=== PATIENT | female | born 1930 | race Caucasian/White ===

== ENCOUNTER 2018-03-11 09:45 | Emergency (ER) | payer MEDICARE, BC ==
[2018-03-11 09:53] VITALS: PULSE 67; TEMP 97.8
[2018-03-11] MEDS ORDERED: SODIUM CHLORIDE 0.9% 1,000 ML IV STA (10:24)
--- NOTE | 2018-03-11 10:46 | ED ---
Fall HPI - General Chief Complaint: Fall Stated Complaint: Fall Time Seen by Provider: 03/11/18 09:49 Source: patient, EMS Mode of arrival: EMS - History of Present Illness Initial Comments: This is an 88-year-old female the ER for evaluation status post fall. Patient does have a complaint of headache head injury she did hit her head. No loss of consciousness. Patient unsure of events surrounding fall she believes falls mechanical trip and fall. Patient denies any other body pain or injury, she was inhibitory at the scene MD Complaint: fall -: minutes(s) Fall From: standing When Fall Occurred: unsure Fall Witnessed: no Place Fall Occurred: home Loss of Consciousness: none Prolonged Down Time?: no Location: head Severity: mild Severity scale (1-10): 1 Context: tripped/slipped Associated Symptoms: denies - Related Data Home Medications Medication Instructions Recorded Confirmed Aspirin 81 mg PO DAILY 04/19/14 03/11/18 ALPRAZolam [Xanax] 0.25 mg PO BID 03/11/18 03/11/18 Acetaminophen Tab [Tylenol] 1,000 mg PO TID 03/11/18 03/11/18 Allopurinol [Zyloprim] 100 mg PO DAILY 03/11/18 03/11/18 Atenolol [Tenormin] 50 mg PO DAILY 03/11/18 03/11/18 Carbidopa-Levodopa 25-100 mg 1 tab PO BID 03/11/18 03/11/18 [Sinemet 25-100 mg] Cholecalciferol [Vitamin D3] 1,000 mg PO DAILY 03/11/18 03/11/18 Citalopram Hydrobromide 10 mg PO DAILY 03/11/18 03/11/18 [Citalopram HBr] Cyanocobalamin [Vitamin B-12] 500 mcg PO DAILY 03/11/18 03/11/18 Diclofenac Sodium [Voltaren Gel] 4 gram TOPICAL QID 03/11/18 03/11/18 Epoetin Lev [Procrit] 20,000 unit SQ Q28D 03/11/18 03/11/18 Flaxseed Oil 1,000 mg PO DAILY 03/11/18 03/11/18 Furosemide [Lasix] 40 mg PO BID 03/11/18 03/11/18 Glimepiride [Amaryl] 2 mg PO DAILY 03/11/18 03/11/18 Hydrocortisone Cream 1 applic TOPICAL DAILY 03/11/18 03/11/18 [Hydrocortisone 1% Cream] Ipratropium-Albuterol Nebulize 3 ml INHALATION RT-QID 03/11/18 03/11/18 [Duoneb 0.5 mg-3 mg/3 ml Soln] Loperamide [Imodium] 2 mg PO QID 03/11/18 03/11/18 Losartan Potassium 100 mg PO DAILY 03/11/18 03/11/18 Methenamine/Sodium Salicylate 2 cap PO DAILY 03/11/18 03/11/18 [Cystex Plus Tablet] Montelukast [Singulair] 10 mg PO DAILY 03/11/18 03/11/18 Multivitamins, Thera [Multivitamin 1 tab PO DAILY 03/11/18 03/11/18 (formulary)] Nystatin 100,000 Unit/gm Powd 1 applic TOPICAL DAILY 03/11/18 03/11/18 [Mycostatin Powder] Omeprazole 20 mg PO DAILY 03/11/18 03/11/18 Sennosides/Docusate Sodium 1 tab PO BID 03/11/18 03/11/18 [Senna-S Laxative Tablet] Simvastatin [Zocor] 10 mg PO HS 03/11/18 03/11/18 Previous Rx's Medication Instructions Recorded Nitrofurantoin Monohyd/M-Cryst 100 mg PO Q12HR #10 cap 03/11/18 [Macrobid] Allergies Allergy/AdvReac Type Severity Reaction Status Date / Time Penicillins Allergy Severe Rash/Hives Verified 03/11/18 10:35 sulfacetamide sodium Allergy Severe Rash/Hives Verified 03/11/18 10:35 [From Sulfamide] ciprofloxacin Allergy Intermediate Rash/Hives Verified 03/11/18 10:35 bacitracin Allergy Mild Rash/Hives Verified 03/11/18 10:35 [From Neosporin ([id number])] bacitracin zinc Allergy Mild Rash/Hives Verified 03/11/18 10:35 [From Neosporin ([id number])] neomycin sulfate Allergy Mild Rash/Hives Verified 03/11/18 10:35 [From Neosporin ([id number])] polymyxin B Allergy Mild Rash/Hives Verified 03/11/18 10:35 [From Neosporin ([id number])] ibuprofen AdvReac Intermediate Unknown Verified 03/11/18 10:35 adhesive AdvReac Mild Rash/Hives Verified 03/11/18 10:35 morphine AdvReac Mild Nausea & Verified 03/11/18 10:35 Vomiting Review of Systems ROS Statement: Those systems with pertinent positive or pertinent negative responses have been documented in the HPI. ROS Other: All systems not noted in ROS Statement are negative. Past Medical History Past Medical History: Coronary Artery Disease (CAD), Chest Pain / Angina, Diabetes Mellitus, Hyperlipidemia, Hypertension, Renal Disease, Rheumatoid Arthritis (RA), Thyroid Disorder History of Any Multi-Drug Resistant Organisms: None Reported Past Surgical History: Hysterectomy, Joint Replacement Additional Past Surgical History / Comment(s): carpel tunnel Past Psychological History: Anxiety, Depression Smoking Status: Former smoker Past Alcohol Use History: None Reported Past Drug Use History: None Reported - Past Family History Father Family Medical History: CVA/TIA Mother Family Medical History: Cancer General Exam Limitations: no limitations General appearance: alert, in no apparent distress Head exam: Present: atraumatic, normocephalic, normal inspection Eye exam: Present: normal appearance, PERRL, EOMI. Absent: scleral icterus, conjunctival injection, periorbital swelling ENT exam: Present: normal exam, mucous membranes moist Neck exam: Present: normal inspection. Absent: tenderness, meningismus, lymphadenopathy Respiratory exam: Present: normal lung sounds bilaterally. Absent: respiratory distress, wheezes, rales, rhonchi, stridor Cardiovascular Exam: Present: regular rate, normal rhythm, normal heart sounds. Absent: systolic murmur, diastolic murmur, rubs, gallop, clicks GI/Abdominal exam: Present: soft, normal bowel sounds. Absent: distended, tenderness, guarding, rebound, rigid Extremities exam: Present: normal inspection, full ROM, normal capillary refill. Absent: tenderness, pedal edema, joint swelling, calf tenderness Back exam: Present: normal inspection Neurological exam: Present: alert, oriented X3, CN II-XII intact Psychiatric exam: Present: normal affect, normal mood Skin exam: Present: warm, dry, intact, normal color. Absent: rash Course Vital Signs 03/11/18 03/11/18 09:46 14:02 Temperature 97.8 F Pulse Rate 67 67 Respiratory 20 18 Rate Blood Pressure 137/57 150/55 O2 Sat by Pulse 96 97 Oximetry - Reevaluation(s) Reevaluation #1: Patient's family is at bedside states patient is at baseline, patient has no complaints currently Medical Decision Making - Medical Decision Making 88 female DEL mechanical trip and fall, CT negative labwork normal patient does have mild UTI. Patient is able to ambulate and can be discharged home - Lab Data Result diagrams: 03/11/18 11:05 03/11/18 11:05 Lab Results 03/11/18 03/11/18 03/11/18 Range/Units 11: 11: 11:05 WBC 14.2 H (3.8-10.6) k/uL RBC 2.90 L (3.80-5.40) m/uL Hgb 9.2 L (11.4-16.0) gm/dL Hct 29.1 L (34.0-46.0) % MCV 100.6 H (80.0-100.0) fL MCH 31.9 (25.0-35.0) pg MCHC 31.7 (31.0-37.0) g/dL RDW 14.6 (11.5-15.5) % Plt Count 552 H (150-450) k/uL Neutrophils % 79 % Lymphocytes % 11 % Monocytes % 4 % Eosinophils % 5 % Basophils % 0 % Neutrophils # 11.1 H (1.3-7.7) k/uL Lymphocytes # 1.5 (1.0-4.8) k/uL Monocytes # 0.6 (0-1.0) k/uL Eosinophils # 0.7 (0-0.7) k/uL Basophils # 0.1 (0-0.2) k/uL Macrocytosis Slight PT (9.0-12.0) sec INR (<1.2) APTT (22.0-30.0) sec Sodium 128 L (137-145) mmol/L Potassium 4.8 (3.5-5.1) mmol/L Chloride 94 L (98-107) mmol/L Carbon Dioxide 26 (22-30) mmol/L Anion Gap 8 mmol/L BUN 23 H (7-17) mg/dL Creatinine 0.93 (0.52-1.04) mg/dL Est GFR (CKD-EPI)AfAm 64 (>60 ml/min/1.73 sqM) Est GFR (CKD-EPI)NonAf 56 (>60 ml/min/1.73 sqM) Glucose 99 (74-99) mg/dL Calcium 9.4 (8.4-10.2) mg/dL Phosphorus 4.0 (2.5-4.5) mg/dL Magnesium 1.8 (1.6-2.3) mg/dL Total Bilirubin 0.3 (0.2-1.3) mg/dL AST 12 L (14-36) U/L ALT 8 L (9-52) U/L Alkaline Phosphatase 108 (38-126) U/L Total Creatine Kinase 37 (30-135) U/L CK-MB (CK-2) 0.7 (0.0-2.4) ng/mL CK-MB (CK-2) Rel Index 1.9 Troponin I <0.012 (0.000-0.034) ng/mL Total Protein 5.9 L (6.3-8.2) g/dL Albumin 3.2 L (3.5-5.0) g/dL Urine Color Urine Appearance (Clear) Urine pH (5.0-8.0) Ur Specific [place] (1.001-1.035) Urine Protein (Negative) Urine Glucose (UA) (Negative) Urine Ketones (Negative) Urine Blood (Negative) Urine Nitrite (Negative) Urine Bilirubin (Negative) Urine Urobilinogen (<2.0) mg/dL Ur Leukocyte Esterase (Negative) Urine WBC (0-5) /hpf Ur Squamous Epith Cells (0-4) /hpf Amorphous Sediment (None) /hpf Urine Bacteria (None) /hpf Urine Mucus (None) /hpf 03/11/18 03/11/18 Range/Units 11:05 11:05 WBC (3.8-10.6) k/uL RBC (3.80-5.40) m/uL Hgb (11.4-16.0) gm/dL Hct (34.0-46.0) % MCV (80.0-100.0) fL MCH (25.0-35.0) pg MCHC (31.0-37.0) g/dL RDW (11.5-15.5) % Plt Count (150-450) k/uL Neutrophils % % Lymphocytes % % Monocytes % % Eosinophils % % Basophils % % Neutrophils # (1.3-7.7) k/uL Lymphocytes # (1.0-4.8) k/uL Monocytes # (0-1.0) k/uL Eosinophils # (0-0.7) k/uL Basophils # (0-0.2) k/uL Macrocytosis PT 10.3 (9.0-12.0) sec INR 1.0 (<1.2) APTT 25.6 (22.0-30.0) sec Sodium (137-145) mmol/L Potassium (3.5-5.1) mmol/L Chloride (98-107) mmol/L Carbon Dioxide (22-30) mmol/L Anion Gap mmol/L BUN (7-17) mg/dL Creatinine (0.52-1.04) mg/dL Est GFR (CKD-EPI)AfAm (>60 ml/min/1.73 sqM) Est GFR (CKD-EPI)NonAf (>60 ml/min/1.73 sqM) Glucose (74-99) mg/dL Calcium (8.4-10.2) mg/dL Phosphorus (2.5-4.5) mg/dL Magnesium (1.6-2.3) mg/dL Total Bilirubin (0.2-1.3) mg/dL AST (14-36) U/L ALT (9-52) U/L Alkaline Phosphatase (38-126) U/L Total Creatine Kinase (30-135) U/L CK-MB (CK-2) (0.0-2.4) ng/mL CK-MB (CK-2) Rel Index Troponin I (0.000-0.034) ng/mL Total Protein (6.3-8.2) g/dL Albumin (3.5-5.0) g/dL Urine Color Light Yellow Urine Appearance Cloudy H (Clear) Urine pH 6.5 (5.0-8.0) Ur Specific [place] 1.005 (1.001-1.035) Urine Protein Negative (Negative) Urine Glucose (UA) Negative (Negative) Urine Ketones Negative (Negative) Urine Blood Negative (Negative) Urine Nitrite Positive H (Negative) Urine Bilirubin Negative (Negative) Urine Urobilinogen <2.0 (<2.0) mg/dL Ur Leukocyte Esterase Moderate H (Negative) Urine WBC 9 H (0-5) /hpf Ur Squamous Epith Cells 1 (0-4) /hpf Amorphous Sediment Rare H (None) /hpf Urine Bacteria Many H (None) /hpf Urine Mucus Rare H (None) /hpf - EKG Data -: EKG Interpreted by Me (EKG shows sinus rhythm rate of 65, KS 186, QRS 74, QTc 438) - Radiology Data Radiology results: report reviewed (CT brain C-spine negative for acute disease) , image reviewed Disposition Clinical Impression: Fall, Scalp hematoma Disposition: HOME SELF-CARE Condition: Good Instructions: Fall Prevention for Older Adults (ED), Contusion in Adults (ED), Hematoma (ED) Prescriptions: Nitrofurantoin Monohyd/M-Cryst [Macrobid] 100 mg PO Q12HR #10 cap Is patient prescribed a controlled substance at d/c from ED?: No Referrals: Henri Bowman MD [Primary Care Provider] - 1-2 days
[2018-03-11 11:50] LABS: Basophils # (A) 0.1 k/uL (0-0.2); Basophils % (A) 0 %; Eosinophils # (A) 0.7 k/uL (0-0.7); Eosinophils % (A) 5 %; HCT 29.1 % (34.0-46.0); HGB 9.2 gm/dL (11.4-16.0); Lymphocytes # (A) 1.5 k/uL (1.0-4.8); Lymphocytes % (A) 11 %; MCH 31.9 pg (25.0-35.0); MCHC 31.7 g/dL (31.0-37.0); MCV 100.6 fL (80.0-100.0); Macrocytosis Slight; Mean Platelet Volume 6.8; Monocytes # (A) 0.6 k/uL (0-1.0); Monocytes % (A) 4 %; Neutrophils # (A) 11.1 k/uL (1.3-7.7); Neutrophils % (A) 79 %; Platelet Count 552 k/uL (150-450); RDW 14.6 % (11.5-15.5); WBC 14.2 k/uL (3.8-10.6)
[2018-03-11 11:58] LABS: Partial Thromboplastin Time 25.6 sec (22.0-30.0); Prothrombin Time 10.3 sec (9.0-12.0)
[2018-03-11 11:59] LABS: Amorphous Sediment,Urine Rare /hpf; Appearance,Urine Cloudy (Clear); Bacteria,Urine Many /hpf; Bilirubin,Urine Negative (Negative); Blood,Urine Negative (Negative); Color,Urine Light Yellow; Glucose,Urine (UA) Negative (Negative); Ketones,Urine Negative (Negative); Leukocyte Esterase,Urine Moderate (Negative); Mucus,Urine Rare /hpf; Nitrite,Urine Positive (Negative); PH, Urine 6.5 (5.0-8.0); Protein,Urine Negative (Negative); Specific Gravity,Urine 1.005 (1.001-1.035); Squamous Epithelial Cell,Urine 1 /hpf (0-4); Urobilinogen,Urine <2.0 mg/dL (<2.0); WBC,Urine 9 /hpf (0-5)
[2018-03-11 12:00] LABS: Albumin 3.2 g/dL (3.5-5.0); Calcium 9.4 mg/dL (8.4-10.2); Magnesium 1.8 mg/dL (1.6-2.3); Potassium 4.8 mmol/L (3.5-5.1); Total Bilirubin 0.3 mg/dL (0.2-1.3); Total Protein 5.9 g/dL (6.3-8.2)
--- NOTE | 2018-03-11 12:11 | CT ---
EXAMINATION TYPE: CT brain cspine wo con DATE OF EXAM: 03/11/2018 COMPARISON: [facility] chest dated 05/22/2015. HISTORY: fall, subsequent head and neck pain CT DLP: 905 mGycm. Automated Exposure Control for Dose Reduction was Utilized. TECHNIQUE: CT scan of the head and cervical spine are performed without contrast. FINDINGS: There is no acute intracranial hemorrhage, mass effect, or midline shift identified. The ventricles and sulci are symmetrically prominent compatible with age-related volume loss. The globe s are intact and the visualized sinuses are clear. There is similar high density near the foramen of Ware in comparison to the prior exam that may relate to calcified choroid plexus or a small complic ated colloid cyst. There is an 8 mm right frontal scalp hematoma. No underlying calvarial fracture. Cervical spine is visualized in its entirety from C1 through upper thoracic levels and demonstrates s atisfactory alignment without evidence of acute fracture or dislocation. Prevertebral soft tissue ap pears within normal limits. The C1-C2 articulation is unremarkable. There is a stable sclerotic les ion of the T2 vertebral body in comparison to the CT [facility] chest dated 05/22/2015. Sclerotic focus is also seen within the left lateral aspect of the anterior arch of C1. Multilevel degenerative lara ges of the cervical spine are seen with small posterior disc osteophyte complexes at C3-C4, C4-C5, C5 -C6 and C6-C7. Biapical pleural parenchymal scarring is noted at the lung apices. Atherosclerosis is incidentally no harry of the carotids. IMPRESSION: 1. There is no acute fracture or dislocation evident in the cervical spine. 2. No acute intracranial hemorrhage, mass effect, or midline shift is seen. 3. Age-related cerebral volume loss and possible small stable colloid cyst versus calcified choroid p yandy near the foramen of Ware. 4. 8 mm right frontal scalp hematoma. 5. Nonspecific sclerotic foci within the cervical and upper thoracic spine. Thoracic spine lesion is stable dating back to 2015.
[2018-03-11 12:13] LABS: Creatine Kinase 37 U/L (30-135)
[2018-03-11] MEDS ORDERED: cefTRIAXone 2,000 MG in SODIUM CHLORIDE 0.9% 100 ML IVPB STA (12:20)
[2018-03-11 12:24] LABS: Creatine Kinase MB 0.7 ng/mL (0.0-2.4); Troponin I <0.012 ng/mL (0.000-0.034)
[2018-03-11 14:03] VITALS: BP 150/55; RESP 18
[2018-03-11] MEDS ORDERED: ACETAMINOPHEN TAB 500 MG TAB PO STA (14:37)
== END 2018-03-11 14:38 | disposition home or self-care (01) ==
LOC: EC 09:45
DX: S00.03XA Contusion of scalp, initial encounter (principal); F32.9 Major depressive disorder, single episode, unspecified; F41.9 Anxiety disorder, unspecified; I25.119 Atherosclerotic heart disease of native coronary artery with unspecified angina pectoris; I10 Essential (primary) hypertension; E11.9 Type 2 diabetes mellitus without complications; E78.5 Hyperlipidemia, unspecified; M06.9 Rheumatoid arthritis, unspecified; Z79.82 Long term (current) use of aspirin; Z79.84 Long term (current) use of oral hypoglycemic drugs; Z79.51 Long term (current) use of inhaled steroids; Z79.899 Other long term (current) drug therapy; Z88.0 Allergy status to penicillin; Z88.1 Allergy status to other antibiotic agents; Z88.2 Allergy status to sulfonamides; Z88.5 Allergy status to narcotic agent; Z88.6 Allergy status to analgesic agent; Z91.048 Other nonmedicinal substance allergy status; Z87.891 Personal history of nicotine dependence; W01.198A Fall on same level from slipping, tripping and stumbling with subsequent striking against other object, initial encounter; Y92.009 Unspecified place in unspecified non-institutional (private) residence as the place of occurrence of the external cause
CPT/HCPCS: 36415; 93005; 80053; 82550; 82553; 83735; 84100; 84484; 85025; 85610; 85730; 81001; 87086; 72125; 70450; 99284; 96365; 96361; J0696; 87077; 87186

== ENCOUNTER 2018-06-06 08:13 | Inpatient (IN) | payer MEDICARE, BC ==
--- NOTE | 2018-06-06 08:47 | ED ---
General Adult HPI <Jason Schreiber - Last Filed: 06/06/18 11:25> - General Source: patient, EMS, RN notes reviewed Mode of arrival: ambulatory Limitations: no limitations <Sukhwinder Martinez - Last Filed: 06/06/18 11:57> - General Chief complaint: Abdominal Pain Stated complaint: Uti Time Seen by Provider: 06/06/18 08:26 - History of Present Illness Initial comments: Patient's an 88-year-old female presenting to the emergency room by EMS, the chief complaint of urinary tract infection. Patient was diagnosed with UTI yesterday. Was unable to start antibiotics as it was Wednesday and was not able to get the prescription. Coming in today to the hospital for some left-sided abdominal pain. Patient admits to pain left side of the abdomen is worried about possible kidney infection. Patient denies any other complaints or symptoms. Patient denies any recent fever, chills, shortness of breath, chest pain, back pain, nausea or vomiting, numbness or tingling, headaches or visual changes, or any other complaints. (Sukhwinder Martinez) - Related Data Home Medications Medication Instructions Recorded Confirmed Aspirin 81 mg PO DAILY 04/19/14 06/06/18 ALPRAZolam [Xanax] 0.25 mg PO BID 03/11/18 06/06/18 Acetaminophen Tab [Tylenol] 1,000 mg PO TID 03/11/18 06/06/18 Allopurinol [Zyloprim] 100 mg PO DAILY 03/11/18 06/06/18 Atenolol [Tenormin] 50 mg PO DAILY 03/11/18 06/06/18 Carbidopa-Levodopa 25-100 mg 1 tab PO BID 03/11/18 06/06/18 [Sinemet 25-100 mg] Cholecalciferol [Vitamin D3] 1,000 mg PO DAILY 03/11/18 06/06/18 Citalopram Hydrobromide 10 mg PO DAILY 03/11/18 06/06/18 [Citalopram HBr] Cyanocobalamin [Vitamin B-12] 500 mcg PO DAILY 03/11/18 06/06/18 Epoetin Lev [Procrit] 20,000 unit SQ Q28D 03/11/18 06/06/18 Furosemide [Lasix] 40 mg PO BID 03/11/18 06/06/18 Glimepiride [Amaryl] 2 mg PO DAILY 03/11/18 06/06/18 Hydrocortisone Cream 1 applic TOPICAL DAILY 03/11/18 06/06/18 [Hydrocortisone 1% Cream] Ipratropium-Albuterol Nebulize 3 ml INHALATION RT-QID 03/11/18 06/06/18 [Duoneb 0.5 mg-3 mg/3 ml Soln] Losartan Potassium 100 mg PO DAILY 03/11/18 06/06/18 Methenamine/Sodium Salicylate 2 cap PO DAILY 03/11/18 06/06/18 [Cystex Plus Tablet] Montelukast [Singulair] 10 mg PO DAILY 03/11/18 06/06/18 Multivitamins, Thera [Multivitamin 1 tab PO DAILY 03/11/18 06/06/18 (formulary)] Nystatin 100,000 Unit/gm Powd 1 applic TOPICAL DAILY 03/11/18 06/06/18 [Mycostatin Powder] Omeprazole 20 mg PO DAILY 03/11/18 06/06/18 Sennosides/Docusate Sodium 1 tab PO BID 03/11/18 06/06/18 [Senna-S Laxative Tablet] Simvastatin [Zocor] 10 mg PO HS 03/11/18 06/06/18 Diclofenac Sodium Gel [Voltaren 2 gram TOPICAL BID 06/06/18 06/06/18 Gel] Mupirocin Calcium [Bactroban 2% 1 applic TOPICAL DAILY 06/06/18 06/06/18 Nasal Oint] traMADol HCL [Ultram] 50 mg PO TID PRN 06/06/18 06/06/18 Allergies Allergy/AdvReac Type Severity Reaction Status Date / Time Penicillins Allergy Severe Rash/Hives Verified 06/06/18 08:29 sulfacetamide sodium Allergy Severe Rash/Hives Verified 06/06/18 08:29 [From Sulfamide] ciprofloxacin Allergy Intermediate Rash/Hives Verified 06/06/18 08:29 bacitracin Allergy Mild Rash/Hives Verified 06/06/18 08:29 [From Neosporin ([id number])] bacitracin zinc Allergy Mild Rash/Hives Verified 06/06/18 08:29 [From Neosporin ([id number])] neomycin sulfate Allergy Mild Rash/Hives Verified 06/06/18 08:29 [From Neosporin ([id number])] polymyxin B Allergy Mild Rash/Hives Verified 06/06/18 08:29 [From Neosporin ([id number])] ampicillin Allergy Unknown Verified 06/06/18 08:29 buspirone [From BuSpar] Allergy Unknown Verified 06/06/18 08:29 doxycycline Allergy Unknown Verified 06/06/18 08:29 ezetimibe [From Zetia] Allergy Unknown Verified 06/06/18 08:29 hydrocodone Allergy Unknown Verified 06/06/18 08:29 ramipril [From Altace] Allergy Unknown Verified 06/06/18 08:29 ibuprofen AdvReac Intermediate Unknown Verified 06/06/18 08:29 adhesive AdvReac Mild Rash/Hives Verified 06/06/18 08:29 morphine AdvReac Mild Nausea & Verified 06/06/18 08:29 Vomiting cephalexin [From Keflex] AdvReac Unknown Verified 06/06/18 08:29 Review of Systems ROS Other: All systems not noted in ROS Statement are negative. <Jason Schreiber - Last Filed: 06/06/18 11:25> ROS Other: All systems not noted in ROS Statement are negative. <Sukhwinder Martinez - Last Filed: 06/06/18 11:57> ROS Statement: Those systems with pertinent positive or pertinent negative responses have been documented in the HPI. Past Medical History Past Medical History: Coronary Artery Disease (CAD), Chest Pain / Angina, Diabetes Mellitus, Hyperlipidemia, Hypertension, Renal Disease, Rheumatoid Arthritis (RA), Thyroid Disorder History of Any Multi-Drug Resistant Organisms: None Reported Past Surgical History: Hysterectomy, Joint Replacement Additional Past Surgical History / Comment(s): carpel tunnel Past Psychological History: Anxiety, Depression Smoking Status: Former smoker Past Alcohol Use History: None Reported Past Drug Use History: None Reported - Past Family History Father Family Medical History: CVA/TIA Mother Family Medical History: Cancer <Sukhwinder Martinez - Last Filed: 06/06/18 11:57> General Exam <Jason Schreiber - Last Filed: 06/06/18 11:25> Limitations: no limitations <Sukhwinder Martinez - Last Filed: 06/06/18 11:57> - General Exam Comments Initial Comments: General: The patient is awake and alert, in no distress, and does not appear acutely ill. Eye: There is normal conjunctiva bilaterally. No signs of icterus. Ears, nose, mouth and throat: There are moist mucous membranes and no oral lesions. Neck: The neck is supple, there is no tenderness or JVD. Cardiovascular: There is a regular rate and rhythm. No murmur, rub or gallop is appreciated. Respiratory: Lungs are clear to auscultation, respirations are non-labored, breath sounds are equal. No wheezes, stridor, rales, or rhonchi. Gastrointestinal: Abdomen soft on palpation. Patient does have tenderness left upper quadrant. No rebound, guarding or CVA tenderness. Musculoskeletal: Normal ROM, no tenderness. Neurological: A&O x 3. CN II-XII intact, There are no obvious motor or sensory deficits. Coordination appears grossly intact. Speech is normal. Skin: Skin is warm and dry and no rashes or lesions are noted. Psychiatric: Cooperative, appropriate mood & affect, normal judgment. (Sukhwinder Martinez) Course <Jason Schreiber - Last Filed: 06/06/18 11:25> <Sukhwinder Martinez - Last Filed: 06/06/18 11:57> Vital Signs 06/06/18 08:17 Temperature 98.9 F Pulse Rate 60 Respiratory 18 Rate Blood Pressure 144/66 O2 Sat by Pulse 96 Oximetry - Reevaluation(s) Reevaluation #1: 06/06/18 11:25 Patient reevaluated by myself, Dr. Schreiber. Patient still complains of discomfort. Abdomen does have mild diffuse tenderness. Computed tomography scan ordered. Case was discussed in detail with Dr. Arias, covering for Dr. Bowman, who will admit. He did see patient in the emergency department. I did review and agree with PA findings. This includes all diagnostic interpretations and treatment plan. (Jason Schreiber) Medical Decision Making - Lab Data Result diagrams: 06/06/18 09:01 06/06/18 09:01 <Jason Schreiber - Last Filed: 06/06/18 11:25> - Lab Data Result diagrams: 06/06/18 09:01 06/06/18 09:01 <Sukhwinder Martinez - Last Filed: 06/06/18 11:57> - Medical Decision Making Patient reexamined at this time shows no signs of distress. She is resting comfortably. Patient presented to the emergency room for left-sided abdominal pain. Patient's labs reviewed shows a white count of 29. Sodium 130. Troponin elevated at 0.088. BUN/creatinine mildly elevated at 47/1.67 respectively. Patient's urinalysis does show evidence for urinary tract infection. Patient started on Rocephin here in emergency room. Patient's vitals are stable. Lactic acid and blood cultures currently pending. Patient did have CT the abdomen and pelvis performed 1. Large heterogeneous density mass in the left mid abdomen located below the left kidney and above the course of the mid sigmoid colon. Located anterior to the left psoas and left common iliac artery. 2. Mild asymmetric enlargement of the left kidney with surrounding edema/inflammation. Patient will be admitted to Dr. Louis with consult for Dr. Solorzano. Patient will have serial cardiac enzymes. Patient will be continued on antibiotics for UTI. (Sukhwinder Martinez) - Lab Data Lab Results 06/06/18 06/06/18 06/06/18 Range/Units 09:01 09:01 09:01 WBC 29.5 H (3.8-10.6) k/uL RBC 3.12 L (3.80-5.40) m/uL Hgb 9.9 L (11.4-16.0) gm/dL Hct 31.0 L (34.0-46.0) % MCV 99.3 (80.0-100.0) fL MCH 31.7 (25.0-35.0) pg MCHC 31.9 (31.0-37.0) g/dL RDW 15.5 (11.5-15.5) % Plt Count 448 (150-450) k/uL Neutrophils % 95 % Lymphocytes % 2 % Monocytes % 2 % Eosinophils % 1 % Basophils % 0 % Neutrophils # 28.0 H (1.3-7.7) k/uL Lymphocytes # 0.5 L (1.0-4.8) k/uL Monocytes # 0.6 (0-1.0) k/uL Eosinophils # 0.3 (0-0.7) k/uL Basophils # 0.0 (0-0.2) k/uL Macrocytosis Slight PT (9.0-12.0) sec INR (<1.2) APTT (22.0-30.0) sec Sodium 130 L (137-145) mmol/L Potassium 5.2 H (3.5-5.1) mmol/L Chloride 98 (98-107) mmol/L Carbon Dioxide 23 (22-30) mmol/L Anion Gap 9 mmol/L BUN 47 H (7-17) mg/dL Creatinine 1.67 H (0.52-1.04) mg/dL Est GFR (CKD-EPI)AfAm 32 (>60 ml/min/1.73 sqM) Est GFR (CKD-EPI)NonAf 27 (>60 ml/min/1.73 sqM) Glucose 231 H (74-99) mg/dL Calcium 9.0 (8.4-10.2) mg/dL Total Bilirubin 0.5 (0.2-1.3) mg/dL AST 19 (14-36) U/L ALT 20 (9-52) U/L Alkaline Phosphatase 116 (38-126) U/L Total Creatine Kinase 44 (30-135) U/L CK-MB (CK-2) 1.0 (0.0-2.4) ng/mL CK-MB (CK-2) Rel Index 2.3 Troponin I 0.088 H* (0.000-0.034) ng/mL Total Protein 5.9 L (6.3-8.2) g/dL Albumin 3.1 L (3.5-5.0) g/dL Amylase <30 L (30-110) U/L Lipase 26 (23-300) U/L Urine Color Urine Appearance (Clear) Urine pH (5.0-8.0) Ur Specific [place] (1.001-1.035) Urine Protein (Negative) Urine Glucose (UA) (Negative) Urine Ketones (Negative) Urine Blood (Negative) Urine Nitrite (Negative) Urine Bilirubin (Negative) Urine Urobilinogen (<2.0) mg/dL Ur Leukocyte Esterase (Negative) Urine RBC (0-5) /hpf Urine WBC (0-5) /hpf Urine WBC Clumps (None) /hpf Ur Squamous Epith Cells (0-4) /hpf Urine Bacteria (None) /hpf 06/06/18 06/06/18 Range/Units 09:01 09:20 WBC (3.8-10.6) k/uL RBC (3.80-5.40) m/uL Hgb (11.4-16.0) gm/dL Hct (34.0-46.0) % MCV (80.0-100.0) fL MCH (25.0-35.0) pg MCHC (31.0-37.0) g/dL RDW (11.5-15.5) % Plt Count (150-450) k/uL Neutrophils % % Lymphocytes % % Monocytes % % Eosinophils % % Basophils % % Neutrophils # (1.3-7.7) k/uL Lymphocytes # (1.0-4.8) k/uL Monocytes # (0-1.0) k/uL Eosinophils # (0-0.7) k/uL Basophils # (0-0.2) k/uL Macrocytosis PT 10.3 (9.0-12.0) sec INR 1.0 (<1.2) APTT 26.8 (22.0-30.0) sec Sodium (137-145) mmol/L Potassium (3.5-5.1) mmol/L Chloride (98-107) mmol/L Carbon Dioxide (22-30) mmol/L Anion Gap mmol/L BUN (7-17) mg/dL Creatinine (0.52-1.04) mg/dL Est GFR (CKD-EPI)AfAm (>60 ml/min/1.73 sqM) Est GFR (CKD-EPI)NonAf (>60 ml/min/1.73 sqM) Glucose (74-99) mg/dL Calcium (8.4-10.2) mg/dL Total Bilirubin (0.2-1.3) mg/dL AST (14-36) U/L ALT (9-52) U/L Alkaline Phosphatase (38-126) U/L Total Creatine Kinase (30-135) U/L CK-MB (CK-2) (0.0-2.4) ng/mL CK-MB (CK-2) Rel Index Troponin I (0.000-0.034) ng/mL Total Protein (6.3-8.2) g/dL Albumin (3.5-5.0) g/dL Amylase (30-110) U/L Lipase (23-300) U/L Urine Color Yellow Urine Appearance Cloudy H (Clear) Urine pH 5.5 (5.0-8.0) Ur Specific [place] 1.011 (1.001-1.035) Urine Protein 1+ H (Negative) Urine Glucose (UA) Negative (Negative) Urine Ketones Negative (Negative) Urine Blood Small H (Negative) Urine Nitrite Negative (Negative) Urine Bilirubin Negative (Negative) Urine Urobilinogen <2.0 (<2.0) mg/dL Ur Leukocyte Esterase Large H (Negative) Urine RBC 5 (0-5) /hpf Urine WBC 100 H (0-5) /hpf Urine WBC Clumps Many H (None) /hpf Ur Squamous Epith Cells 3 (0-4) /hpf Urine Bacteria Many H (None) /hpf Disposition <Jason Schreiber - Last Filed: 06/06/18 11:25> Is patient prescribed a controlled substance at d/c from ED?: No Time of Disposition: 11:57 <Sukhwinder Martinez - Last Filed: 06/06/18 11:57> Clinical Impression: Pyelonephritis, Abdominal mass Disposition: ADMITTED IP TO THIS HOSP Condition: Good Referrals: Henri Bowman MD [Primary Care Provider] - 1-2 days
[2018-06-06 09:33] LABS: Basophils % (A) 0 %; Eosinophils # (A) 0.3 k/uL (0-0.7); Eosinophils % (A) 1 %; HGB 9.9 gm/dL (11.4-16.0); Lymphocytes # (A) 0.5 k/uL (1.0-4.8); Lymphocytes % (A) 2 %; MCH 31.7 pg (25.0-35.0); MCHC 31.9 g/dL (31.0-37.0); MCV 99.3 fL (80.0-100.0); Macrocytosis Slight; Mean Platelet Volume 7.9; Monocytes # (A) 0.6 k/uL (0-1.0); Monocytes % (A) 2 %; Neutrophils % (A) 95 %; Platelet Count 448 k/uL (150-450); RBC 3.12 m/uL (3.80-5.40); RDW 15.5 % (11.5-15.5); WBC 29.5 k/uL (3.8-10.6)
[2018-06-06 09:42] LABS: ALT 20 U/L (9-52); AST 19 U/L (14-36); Albumin 3.1 g/dL (3.5-5.0); Alkaline Phosphatase 116 U/L (38-126); Amylase <30 U/L (30-110); Anion Gap 9 mmol/L; Blood Urea Nitrogen 47 mg/dL (7-17); Carbon Dioxide 23 mmol/L (22-30); Chloride 98 mmol/L (98-107); Glucose 231 mg/dL (74-99); Lipase 26 U/L (23-300); Potassium 5.2 mmol/L (3.5-5.1); Sodium 130 mmol/L (137-145); Total Bilirubin 0.5 mg/dL (0.2-1.3); Total Protein 5.9 g/dL (6.3-8.2)
[2018-06-06 09:44] LABS: Appearance,Urine Cloudy (Clear); Bacteria,Urine Many /hpf; Bilirubin,Urine Negative (Negative); Blood,Urine Small (Negative); Color,Urine Yellow; Glucose,Urine (UA) Negative (Negative); Ketones,Urine Negative (Negative); Leukocyte Esterase,Urine Large (Negative); Nitrite,Urine Negative (Negative); PH, Urine 5.5 (5.0-8.0); Protein,Urine 1+ (Negative); RBC,Urine 5 /hpf (0-5); Specific Gravity,Urine 1.011 (1.001-1.035); Squamous Epithelial Cell,Urine 3 /hpf (0-4); Urobilinogen,Urine <2.0 mg/dL (<2.0)
[2018-06-06 09:53] LABS: Partial Thromboplastin Time 26.8 sec (22.0-30.0); Prothrombin Time 10.3 sec (9.0-12.0)
[2018-06-06 10:13] LABS: Troponin I 0.088 ng/mL (0.000-0.034)
--- NOTE | 2018-06-06 11:07 | XR ---
EXAMINATION TYPE: XR chest 2V DATE OF EXAM: 06/06/2018 COMPARISON: 05/21/2015 HISTORY: Shortness of breath TECHNIQUE: Frontal and lateral views of the chest are obtained. FINDINGS: Scattered senescent parenchymal changes noted. Hyperinflation compatible with COPD. No evidence for infiltrate. No evidence for atelectasis. Heart size is stable. Mediastinal structures are stable and grossly unremarkable. No evidence for hilar prominence. Degenerative changes dorsal spine. IMPRESSION: 1. No evidence for acute pulmonary disease.
--- NOTE | 2018-06-06 11:11 | CT ---
EXAMINATION TYPE: CT abdomen pelvis wo con DATE OF EXAM: 06/06/2018 COMPARISON: None HISTORY: 88-year-old female UTI, Pain CT DLP: 811.8 mGycm. Automated exposure control for dose reduction was used. TECHNIQUE: Contiguous axial scanning of the abdomen and pelvis without IV contrast. Coronal and sagit [place] reconstructions performed. FINDINGS: The heart is mildly enlarged with trace pericardial fluid. Coronary vessel calcifications are present . Small hiatal hernia. Interstitial fibrotic changes in the visualized lower lungs. No pleural effusion. Patient motion artifacts degrading the exam. Allowing for this limitation, noncontrast appearance of the liver, gallbladder, adrenal glands, right kidney, and spleen show no gross abnormality. The pancreas is essentially completely obscured There is asymmetric enlargement of the left kidney with perinephric fat stranding and hazy density in the left renal sinus. No collecting system dilatation to suggest hydronephrosis. Large heterogeneous density mass in the left mid abdomen above the course of the mid sigmoid colon, b elow the left kidney, and anterior to the left psoas and left common iliac artery. This has mass effe ct displacing adjacent small bowel loops. Moderate other scattered calcifications throughout the abdominal aorta and iliac arteries with tortuo sity in the upper abdomen. No mesenteric or retroperitoneal lymphadenopathy identified. No dilated small bowel, free fluid, or free air. Sigmoid diverticulosis without pericolonic inflammatory change. Bladder is urine distended up to 12.9 cm. Uterus surgically absent. Neither ovary is clearly identifi ed. No pelvic free fluid. Mild pelvic floor relaxation. Bones: Degenerative changes at the hips. Severe kyphotic deformity centered at T12-L1 with some inter body fusion from T11 through L2 levels. Advanced degenerative disc disease L2-L3 and L3-L4 with grade 1 retrolisthesis at L1-L2, L2-L3, L3-L4. Baastrup's disease. There may be significant spinal canal n arrowing at L1-L2. IMPRESSION: 1. Large heterogeneous density mass in the left mid abdomen located below left kidney and above the course of the mid sigmoid colon. Located anterior to the left psoas muscle and left common iliac con ry. Further oncologic workup recommended. The exact etiology/origin is not clear. 2. Mild asymmetric enlargement of the left kidney with some surrounding edema/inflammation. Correlat e to exclude underlying infection. 3. Status post hysterectomy. Neither ovary is clearly visualized. Prominent urinary bladder distenti on. Correlate to ensure that this represents voluntary retention. Prominent motion artifacts limiting assessment.
--- NOTE | 2018-06-06 11:13 | XR ---
EXAMINATION TYPE: AP view pelvis and 2 views left hip DATE OF EXAM: 06/06/2018 COMPARISON: NONE HISTORY: 88 year-old female left hip pain FINDINGS: Osteopenia. Moderate axial joint space narrowing on both sides with marginal spurring. External rotat ion of the hips obscures portions of the femoral neck. On the left hip views, there is more optimal positioning. Again, osteopenia is present. No displaced fracture seen. SI joints appear symmetric and intact as does the pubic symphysis. Pelvic phleboliths. IMPRESSION: 1. Moderate bilateral hip osteoarthrosis. 2. Osteopenia without displaced fracture. If patient nonweightbearing, MRI can provide more sensitive evaluation.
[2018-06-06] MEDS ORDERED: ONDANSETRON 4 MG/2 ML VIAL IVP PRN (11:58)
[2018-06-06] MEDS ORDERED: NALOXONE 0.4 MG/ML 1 ML VIAL IV PRN (11:58)
[2018-06-06] MEDS ORDERED: SODIUM CHLORIDE 0.9% 1,000 ML IV ONE (11:58)
--- NOTE | 2018-06-06 12:59 | P.HPIM ---
History of Present Illness H&P Date: 06/06/18 Chief Complaint: Severe abdominal pain, sepsis/UTI, left kidney mass, leukocytosis, acute on 88-year-old female one of Dr. Bowman's patient with past medical history of Parkinson disease chronic anemia mild leukocytosis hypothyroidism history of rheumatoid arthritis and CAD who presented to demurs department today at [facility] with complaint of severe abdominal pain fever or chills and worsening pain in the left side from the flank all the way to the groin area symptoms become much worse associated with significant nausea with no vomiting also polyuria frequency and urgency with worsening incontinence. Surprisingly found to have significant leukocytosis with white blood cell 27, 000 her last baseline was 12,000 only. With severity of her pain ended up going for CT of the abdomen showed mass in the left side close to the kidney and the soft tissue along with infection most likely pyelonephritis on the left side. Patient was started on gram-negative coverage antibiotic-san blood culture and urine culture in process patient be admitted to the hospital the above problem will be seen urology in possibly, also we'll consult oncology based on the recommendation might need biopsy when the infection is a clear. Patient also has mild altered mental status most likely consistent with a current infection at this point. Review of Systems CONSTITUTIONAL: Well-developed no acute respiratory distress. Positive fever or chills and change mental status EYES: No icterus sclerae, no conjunctivitis. EARS, NOSE, MOUTH, THROAT, and FACE: No sore throat, lymphadenopathy, carotid bruits or deformity. RESPIRATORY: No SOB cough or wheezes. CARDIOVASCULAR: No CP, Palpitation, PND, Orthopnea, or angina. GASTROINTESTINAL: Positive Abd pain, positive Nausea and vomiting, no Diarrhea or constipation, No GI Bleed, no distention or masses. Worsening abdominal pain GENITOURINARY: Significant infection with pyelonephritis left flank pain recurrent pain burning discomfort. INTEGUMENT/BREAST: Negative for any muscular injury with mild osteoarthritis.. HEMATOLOGIC/LYMPHATIC: Negative for bleed or purpura. MUSCULOSKELTAL: Negative for Myalgia or arthralgia. NEURLOGICAL: No LOC, Sz or syncope, blurred vision dizziness or abnormality.. Positive mild Alter mental status. BEHAVIORAL/PSYCH: Negative. ENDOCRINE: Negative. Past Medical History Past Medical History: Coronary Artery Disease (CAD), Chest Pain / Angina, Diabetes Mellitus, GERD/Reflux, Hyperlipidemia, Hypertension, Renal Disease, Rheumatoid Arthritis (RA), Sleep Apnea/CPAP/BIPAP, Thyroid Disorder Additional Past Medical History / Comment(s): NIDDM type II, neuropathy bilateral hands/feet, past L foot kwadwo ulcer, past bilateral lower leg cellulitis, pt currently has sores top of L foot and a bandage and also a bandage between toes of R foot, DVT in 2011-lower extremity, past medical record indicates intracranial bleed/spinal leak but pt has no recall of this, chronic renal disease/interstitial nephrititis, UTIs, DDD, osteopenia, constipation, anemia with past procrit injections, EDUARD-no device used. History of Any Multi-Drug Resistant Organisms: None Reported Past Surgical History: Breast Surgery, Hysterectomy, Joint Replacement, Orthopedic Surgery Additional Past Surgical History / Comment(s): laminectomy, discectomy, low back epidural injections, L foot debridements, total bilateral knee replacements , bilateral carpal tunnel releases, L breast benign biopsy, hiatal hernia repair , colonoscopy, bilateral cataract removals. Past Anesthesia/Blood Transfusion Reactions: No Reported Reaction Smoking Status: Former smoker - Past Family History Father Family Medical History: Coronary Artery Disease (CAD), CVA/TIA, Myocardial Infarction (PR) Additional Family Medical History / Comment(s): Father of a CVA at the age of 72 yrs. Mother Family Medical History: Cancer Additional Family Medical History / Comment(s): Mother was a colon cancer survivor. She in a MVA at the age of 65yrs. Medications and Allergies Home Medications Medication Instructions Recorded Confirmed Type Aspirin 81 mg PO DAILY 04/19/14 06/06/18 History ALPRAZolam [Xanax] 0.25 mg PO BID 03/11/18 06/06/18 History Acetaminophen Tab [Tylenol] 1,000 mg PO TID 03/11/18 06/06/18 History Allopurinol [Zyloprim] 100 mg PO DAILY 03/11/18 06/06/18 History Atenolol [Tenormin] 50 mg PO DAILY 03/11/18 06/06/18 History Carbidopa-Levodopa 25-100 mg 1 tab PO BID 03/11/18 06/06/18 History [Sinemet 25-100 mg] Cholecalciferol [Vitamin D3] 1,000 mg PO DAILY 03/11/18 06/06/18 History Citalopram Hydrobromide 10 mg PO DAILY 03/11/18 06/06/18 History [Citalopram HBr] Cyanocobalamin [Vitamin B-12] 500 mcg PO DAILY 03/11/18 06/06/18 History Epoetin Lev [Procrit] 20,000 unit SQ Q28D 03/11/18 06/06/18 History Furosemide [Lasix] 40 mg PO BID 03/11/18 06/06/18 History Glimepiride [Amaryl] 2 mg PO DAILY 03/11/18 06/06/18 History Hydrocortisone Cream 1 applic TOPICAL DAILY 03/11/18 06/06/18 History [Hydrocortisone 1% Cream] Ipratropium-Albuterol Nebulize 3 ml INHALATION RT-QID 03/11/18 06/06/18 History [Duoneb 0.5 mg-3 mg/3 ml Soln] Losartan Potassium 100 mg PO DAILY 03/11/18 06/06/18 History Methenamine/Sodium Salicylate 2 cap PO DAILY 03/11/18 06/06/18 History [Cystex Plus Tablet] Montelukast [Singulair] 10 mg PO DAILY 03/11/18 06/06/18 History Multivitamins, Thera [Multivitamin 1 tab PO DAILY 03/11/18 06/06/18 History (formulary)] Nystatin 100,000 Unit/gm Powd 1 applic TOPICAL DAILY 03/11/18 06/06/18 History [Mycostatin Powder] Omeprazole 20 mg PO DAILY 03/11/18 06/06/18 History Sennosides/Docusate Sodium 1 tab PO BID 03/11/18 06/06/18 History [Senna-S Laxative Tablet] Simvastatin [Zocor] 10 mg PO HS 03/11/18 06/06/18 History Diclofenac Sodium Gel [Voltaren 2 gram TOPICAL BID 06/06/18 06/06/18 History Gel] Mupirocin Calcium [Bactroban 2% 1 applic TOPICAL DAILY 06/06/18 06/06/18 History Nasal Oint] traMADol HCL [Ultram] 50 mg PO TID PRN 06/06/18 06/06/18 History Allergies Allergy/AdvReac Type Severity Reaction Status Date / Time Penicillins Allergy Severe Rash/Hives Verified 06/06/18 08:29 sulfacetamide sodium Allergy Severe Rash/Hives Verified 06/06/18 08:29 [From Sulfamide] ciprofloxacin Allergy Intermediate Rash/Hives Verified 06/06/18 08:29 bacitracin Allergy Mild Rash/Hives Verified 06/06/18 08:29 [From Neosporin ([id number])] bacitracin zinc Allergy Mild Rash/Hives Verified 06/06/18 08:29 [From Neosporin ([id number])] neomycin sulfate Allergy Mild Rash/Hives Verified 06/06/18 08:29 [From Neosporin ([id number])] polymyxin B Allergy Mild Rash/Hives Verified 06/06/18 08:29 [From Neosporin ([id number])] ampicillin Allergy Unknown Verified 06/06/18 08:29 buspirone [From BuSpar] Allergy Unknown Verified 06/06/18 08:29 doxycycline Allergy Unknown Verified 06/06/18 08:29 ezetimibe [From Zetia] Allergy Unknown Verified 06/06/18 08:29 hydrocodone Allergy Unknown Verified 06/06/18 08:29 ramipril [From Altace] Allergy Unknown Verified 06/06/18 08:29 ibuprofen AdvReac Intermediate Unknown Verified 06/06/18 08:29 adhesive AdvReac Mild Rash/Hives Verified 06/06/18 08:29 morphine AdvReac Mild Nausea & Verified 06/06/18 08:29 Vomiting cephalexin [From Keflex] AdvReac Unknown Verified 06/06/18 08:29 Physical Exam Vitals: Vital Signs Temp Pulse Resp BP Pulse Ox 06/06/18 12:30 167/76 06/06/18 12:00 154/76 94 L 06/06/18 11:30 165/124 90 L 06/06/18 11:00 100 06/06/18 10:30 133/79 06/06/18 10:00 166/70 98 06/06/18 09:30 107/61 98 06/06/18 09:00 127/113 06/06/18 08:30 115/83 98 06/06/18 08:21 100 06/06/18 08:17 98.9 F 60 18 144/66 96 Intake and Output 06/05/18 06/06/18 06/06/18 22:59 06:59 14:59 Other: Weight 90.718 kg General Appearance: Alert, cooperative, no distress, appears stated age. Positive tremor and shakiness typical for Parkinson's along with recurrent from her infection. Neck HEENT: Supple, no lymphadenopathy, no thyroid enlargement, no carotid bruits. Lungs: Clear to auscultation without crackles or wheezes no rhonchi, no deformity. Chest Wall: Chest wall normal expansion with deep inspiration no tenderness and no deformity was found on exam, no costochondral pain or discomfort. Heart: Regular rate and rhythm, S1, S2 normal, no murmur, rub or gallop. Mild tachycardia as well Back: Symmetric, positive left-sided flank pain and discomfort along with tenderness no deformity or abnormality over the spinal cord area. Abdomen: Soft distended with slight tenderness in the left side with no pulsation not able to feel any lymph node enlargement at this point no hepatosplenomegaly Extremities: Extremities normal, atraumatic, no cyanosis or edema. Pulses: 2+ and symmetric. Skin: Skin color, texture, tugor normal, no rashes or lesions. Neurologic: Alert slightly confused, mild tremor typical for Parkinson's disease. cranial nerves II through XII intact, no motor deficit, no abnormal balance or gait. Results CBC & Chem 7: 06/06/18 09:01 06/06/18 09:01 Labs: Abnormal Lab Results - Last 24 Hours (Table) 06/06/18 06/06/18 06/06/18 Range/Units 09:01 09:01 09:01 WBC 29.5 H (3.8-10.6) k/uL RBC 3.12 L (3.80-5.40) m/uL Hgb 9.9 L (11.4-16.0) gm/dL Hct 31.0 L (34.0-46.0) % Neutrophils # 28.0 H (1.3-7.7) k/uL Lymphocytes # 0.5 L (1.0-4.8) k/uL Sodium 130 L (137-145) mmol/L Potassium 5.2 H (3.5-5.1) mmol/L BUN 47 H (7-17) mg/dL Creatinine 1.67 H (0.52-1.04) mg/dL Glucose 231 H (74-99) mg/dL Troponin I 0.088 H* (0.000-0.034) ng/mL Total Protein 5.9 L (6.3-8.2) g/dL Albumin 3.1 L (3.5-5.0) g/dL Amylase <30 L (30-110) U/L Urine Appearance (Clear) Urine Protein (Negative) Urine Blood (Negative) Ur Leukocyte Esterase (Negative) Urine WBC (0-5) /hpf Urine WBC Clumps (None) /hpf Urine Bacteria (None) /hpf 06/06/18 Range/Units 09:20 WBC (3.8-10.6) k/uL RBC (3.80-5.40) m/uL Hgb (11.4-16.0) gm/dL Hct (34.0-46.0) % Neutrophils # (1.3-7.7) k/uL Lymphocytes # (1.0-4.8) k/uL Sodium (137-145) mmol/L Potassium (3.5-5.1) mmol/L BUN (7-17) mg/dL Creatinine (0.52-1.04) mg/dL Glucose (74-99) mg/dL Troponin I (0.000-0.034) ng/mL Total Protein (6.3-8.2) g/dL Albumin (3.5-5.0) g/dL Amylase (30-110) U/L Urine Appearance Cloudy H (Clear) Urine Protein 1+ H (Negative) Urine Blood Small H (Negative) Ur Leukocyte Esterase Large H (Negative) Urine WBC 100 H (0-5) /hpf Urine WBC Clumps Many H (None) /hpf Urine Bacteria Many H (None) /hpf Thrombosis Risk Factor Assmnt - DVT/VTE Prophylaxis DVT/VTE Prophylaxis: Pharmacologic Prophylaxis ordered, Mechanical Prophylaxis ordered - Choose All That Apply Any of the Below Risk Factors Present?: Yes Each Factor Represents 1 point: Obesity (BMI >25) Other Risk Factors: Yes Each Risk Factor Represents 3 Points: Age 75 years or older, History of DVT/PE Other congenital or acquired thrombophilia - If yes, enter type in comment: No Thrombosis Risk Factor Assessment Total Risk Factor Score: 7 Thrombosis Risk Factor Assessment Level: High Risk Assessment and Plan Plan: 1 severe acute abdominal pain: Combination of pyelonephritis, infection, possible small bowel obstruction along with the mass in the soft tissue and around the left kidney. Consult urology and further management if needed general surgery as well. In the meanwhile treat the infection and look into biopsy from the mass in the left kidney as a next step. 2 pyelonephritis, sepsis with UTI with finding on the CT consistent with pyuria as well patient will be on gram-negative coverage was started on ceftriaxone patient has been etiology will wait on the second antibiotic and the final to the cultures back. 3 left kidney mass: Not a clear etiology might require biopsy oncology was consulted as well. 4 Parkinson disease: Patient has been on Sinemet continue medication. 5 hypertension: Has been on daily continue medication. With losartan and metoprolol. 6 hyperlipidemia: On Zocor 10 mg daily continue medication. 7 gout: Patient has been on allopurinol 100 mg daily. 8 CAD: No chest pain or angina continue Lasix, atenolol and statin. 9 mild COPD: Has been on Singulair and DuoNeb. 10 diabetes: Patient is on glyburide 2 mg daily Accu-Chek with status post coverage and be done. 11 chronic anemia iron deficiency has been on iron supplement along with Procrit seen oncology on regular basis. CODE STATUS: Full code. Admit patient to inpatient service for more than 2 nights.
[2018-06-06] MEDS: traMADol 50 MG TAB PO PRN (13:30)
[2018-06-06] MEDS: ACETAMINOPHEN TAB 500 MG TAB PO SCH ×2 (15:30→20:09)
[2018-06-06 15:36] LABS: Creatine Kinase MB 0.7 ng/mL (0.0-2.4)
[2018-06-06 15:58] LABS: Troponin I 0.227 ng/mL (0.000-0.034)
[2018-06-06] MEDS ORDERED: HYDROmorphone 0.5 MG/0.5 ML SYRINGE IVP STA (16:13)
[2018-06-06] MEDS: IPRATROPIUM-ALBUTEROL 3 ML NEB INHALATION SCH ×2 (16:34→19:27)
[2018-06-06 17:13] LABS: Glucose,Whole Blood 236 mg/dL (75-99)
[2018-06-06] MEDS: HEPARIN SODIUM,PORCINE 5,000 UNIT/ML 1 ML VIAL SQ SCH (20:09)
[2018-06-06] MEDS: CARBIDOPA-LEVODOPA 25-100 MG 1 EACH TAB PO SCH (20:10)
[2018-06-06] MEDS: SENNOSIDES-DOCUSATE SODIUM 1 EACH TAB PO SCH (20:10)
[2018-06-06] MEDS: ATORVASTATIN 10 MG TAB PO SCH (20:10)
[2018-06-06] MEDS: ALPRAZolam 0.25 MG TAB PO SCH (20:10)
[2018-06-06] MEDS: DICLOFENAC SODIUM GEL 100 GM TUBE TOPICAL SCH (20:32)
[2018-06-06 20:39] LABS: Glucose,Whole Blood 202 mg/dL (75-99)
[2018-06-06 22:41] LABS: Creatine Kinase MB 0.9 ng/mL (0.0-2.4)
[2018-06-06 22:44] LABS: Troponin I 0.185 ng/mL (0.000-0.034)
[2018-06-07] MEDS: traMADol 50 MG TAB PO PRN ×2 (01:15→11:08)
[2018-06-07 01:51] LABS: Glucose,Whole Blood 106 mg/dL (75-99)
[2018-06-07] MEDS: ACETAMINOPHEN TAB 325 MG TAB PO PRN ×3 (02:18→22:20)
[2018-06-07 05:43] LABS: Glucose,Whole Blood 106 mg/dL (75-99)
[2018-06-07] MEDS: PANTOPRAZOLE 40 MG TABLET PO SCH (05:59)
[2018-06-07] MEDS: GLIMEPIRIDE 2 MG TAB PO SCH (05:59)
[2018-06-07 06:33] LABS: Albumin 2.5 g/dL (3.5-5.0); Calcium 8.9 mg/dL (8.4-10.2); Potassium 4.5 mmol/L (3.5-5.1); Total Bilirubin 0.5 mg/dL (0.2-1.3); Total Protein 5.1 g/dL (6.3-8.2)
[2018-06-07 06:43] LABS: Basophils % (A) 0 %; Eosinophils % (A) 0 %; HCT 27.1 % (34.0-46.0); HGB 8.7 gm/dL (11.4-16.0); Lymphocytes # (A) 0.6 k/uL (1.0-4.8); Lymphocytes % (A) 2 %; MCH 31.6 pg (25.0-35.0); MCHC 32.1 g/dL (31.0-37.0); MCV 98.5 fL (80.0-100.0); Macrocytosis Slight; Monocytes # (A) 0.9 k/uL (0-1.0); Monocytes % (A) 3 %; Neutrophils # (A) 27.8 k/uL (1.3-7.7); Neutrophils % (A) 94 %; Platelet Count 406 k/uL (150-450); RBC 2.76 m/uL (3.80-5.40); RDW 15.6 % (11.5-15.5); WBC 29.6 k/uL (3.8-10.6)
[2018-06-07] MEDS: IPRATROPIUM-ALBUTEROL 3 ML NEB INHALATION SCH ×4 (09:09→21:07)
--- NOTE | 2018-06-07 09:58 | P.PN ---
Subjective Progress Note Date: 06/07/18 Principal diagnosis: Severe abdominal pain, sepsis/UTI, left kidney mass, leukocytosis, acute on 88-year-old female one of Dr. Bowman's patient with past medical history of Parkinson disease chronic anemia mild leukocytosis hypothyroidism history of rheumatoid arthritis and CAD who presented to demurs department today at [facility] with complaint of severe abdominal pain fever or chills and worsening pain in the left side from the flank all the way to the groin area symptoms become much worse associated with significant nausea with no vomiting also polyuria frequency and urgency with worsening incontinence. Surprisingly found to have significant leukocytosis with white blood cell 27, 000 her last baseline was 12,000 only. With severity of her pain ended up going for CT of the abdomen showed mass in the left side close to the kidney and the soft tissue along with infection most likely pyelonephritis on the left side. Patient was started on gram-negative coverage antibiotic-san blood culture and urine culture in process patient be admitted to the hospital the above problem will be seen urology in possibly, also we'll consult oncology based on the recommendation might need biopsy when the infection is a clear. Patient also has mild altered mental status most likely consistent with a current infection at this point. Objective - Vital Signs Vital signs: Vital Signs Temp 98.3 F 06/07/18 07:52 Pulse 88 06/07/18 09:20 Resp 15 06/07/18 07:52 BP 128/60 06/07/18 07:52 Pulse Ox 98 06/07/18 07:52 Intake & Output 06/06/18 06/07/18 06/07/18 18:59 06:59 18:59 Intake Total 240 Output Total 1000 400 Balance -1000 -160 Weight 90.718 kg 94.5 kg Intake: Oral 240 Output: Urine 1000 400 Other: Voiding Method Indwelling Catheter Indwelling Catheter Indwelling Catheter - Exam Review of Systems CONSTITUTIONAL: Well-developed no acute respiratory distress. Positive fever or chills and change mental status EYES: No icterus sclerae, no conjunctivitis. EARS, NOSE, MOUTH, THROAT, and FACE: No sore throat, lymphadenopathy, carotid bruits or deformity. RESPIRATORY: No SOB cough or wheezes. CARDIOVASCULAR: No CP, Palpitation, PND, Orthopnea, or angina. GASTROINTESTINAL: Positive Abd pain, positive Nausea and vomiting, no Diarrhea or constipation, No GI Bleed, no distention or masses. Worsening abdominal pain GENITOURINARY: Significant infection with pyelonephritis left flank pain recurrent pain burning discomfort. INTEGUMENT/BREAST: Negative for any muscular injury with mild osteoarthritis.. HEMATOLOGIC/LYMPHATIC: Negative for bleed or purpura. MUSCULOSKELTAL: Negative for Myalgia or arthralgia. NEURLOGICAL: No LOC, Sz or syncope, blurred vision dizziness or abnormality.. Positive mild Alter mental status. BEHAVIORAL/PSYCH: Negative. ENDOCRINE: Negative. General Appearance: Alert, cooperative, no distress, appears stated age. Positive tremor and shakiness typical for Parkinson's along with recurrent from her infection. Neck HEENT: Supple, no lymphadenopathy, no thyroid enlargement, no carotid bruits. Lungs: Clear to auscultation without crackles or wheezes no rhonchi, no deformity. Chest Wall: Chest wall normal expansion with deep inspiration no tenderness and no deformity was found on exam, no costochondral pain or discomfort. Heart: Regular rate and rhythm, S1, S2 normal, no murmur, rub or gallop. Mild tachycardia as well Back: Symmetric, positive left-sided flank pain and discomfort along with tenderness no deformity or abnormality over the spinal cord area. Abdomen: Soft distended with slight tenderness in the left side with no pulsation not able to feel any lymph node enlargement at this point no hepatosplenomegaly Extremities: Extremities normal, atraumatic, no cyanosis or edema. Pulses: 2+ and symmetric. Skin: Skin color, texture, tugor normal, no rashes or lesions. Neurologic: Alert slightly confused, mild tremor typical for Parkinson's disease. cranial nerves II through XII intact, no motor deficit, no abnormal balance or gait. - Labs CBC & Chem 7: 06/07/18 05:40 06/07/18 05:40 Labs: Abnormal Lab Results - Last 24 Hours (Table) 06/06/18 06/06/18 06/06/18 Range/Units 09:01 09:01 09:20 WBC (3.8-10.6) k/uL RBC (3.80-5.40) m/uL Hgb (11.4-16.0) gm/dL Hct (34.0-46.0) % RDW (11.5-15.5) % Neutrophils # (1.3-7.7) k/uL Lymphocytes # (1.0-4.8) k/uL Sodium 130 L (137-145) mmol/L Potassium 5.2 H (3.5-5.1) mmol/L BUN 47 H (7-17) mg/dL Creatinine 1.67 H (0.52-1.04) mg/dL Glucose 231 H (74-99) mg/dL POC Glucose (mg/dL) (75-99) mg/dL Alkaline Phosphatase (38-126) U/L Troponin I 0.088 H* (0.000-0.034) ng/mL Total Protein 5.9 L (6.3-8.2) g/dL Albumin 3.1 L (3.5-5.0) g/dL Amylase <30 L (30-110) U/L Urine Appearance Cloudy H (Clear) Urine Protein 1+ H (Negative) Urine Blood Small H (Negative) Ur Leukocyte Esterase Large H (Negative) Urine WBC 100 H (0-5) /hpf Urine WBC Clumps Many H (None) /hpf Urine Bacteria Many H (None) /hpf 06/06/18 06/06/18 06/06/18 Range/Units 14:45 16:45 20:38 WBC (3.8-10.6) k/uL RBC (3.80-5.40) m/uL Hgb (11.4-16.0) gm/dL Hct (34.0-46.0) % RDW (11.5-15.5) % Neutrophils # (1.3-7.7) k/uL Lymphocytes # (1.0-4.8) k/uL Sodium (137-145) mmol/L Potassium (3.5-5.1) mmol/L BUN (7-17) mg/dL Creatinine (0.52-1.04) mg/dL Glucose (74-99) mg/dL POC Glucose (mg/dL) 236 H 202 H (75-99) mg/dL Alkaline Phosphatase (38-126) U/L Troponin I 0.227 H* (0.000-0.034) ng/mL Total Protein (6.3-8.2) g/dL Albumin (3.5-5.0) g/dL Amylase (30-110) U/L Urine Appearance (Clear) Urine Protein (Negative) Urine Blood (Negative) Ur Leukocyte Esterase (Negative) Urine WBC (0-5) /hpf Urine WBC Clumps (None) /hpf Urine Bacteria (None) /hpf 06/06/18 06/07/18 06/07/18 Range/Units 21:50 01:31 05:40 WBC 29.6 H (3.8-10.6) k/uL RBC 2.76 L (3.80-5.40) m/uL Hgb 8.7 L (11.4-16.0) gm/dL Hct 27.1 L (34.0-46.0) % RDW 15.6 H (11.5-15.5) % Neutrophils # 27.8 H (1.3-7.7) k/uL Lymphocytes # 0.6 L (1.0-4.8) k/uL Sodium (137-145) mmol/L Potassium (3.5-5.1) mmol/L BUN (7-17) mg/dL Creatinine (0.52-1.04) mg/dL Glucose (74-99) mg/dL POC Glucose (mg/dL) 106 H (75-99) mg/dL Alkaline Phosphatase (38-126) U/L Troponin I 0.185 H* (0.000-0.034) ng/mL Total Protein (6.3-8.2) g/dL Albumin (3.5-5.0) g/dL Amylase (30-110) U/L Urine Appearance (Clear) Urine Protein (Negative) Urine Blood (Negative) Ur Leukocyte Esterase (Negative) Urine WBC (0-5) /hpf Urine WBC Clumps (None) /hpf Urine Bacteria (None) /hpf 06/07/18 06/07/18 Range/Units 05:40 05:42 WBC (3.8-10.6) k/uL RBC (3.80-5.40) m/uL Hgb (11.4-16.0) gm/dL Hct (34.0-46.0) % RDW (11.5-15.5) % Neutrophils # (1.3-7.7) k/uL Lymphocytes # (1.0-4.8) k/uL Sodium 129 L (137-145) mmol/L Potassium (3.5-5.1) mmol/L BUN 47 H (7-17) mg/dL Creatinine 1.64 H (0.52-1.04) mg/dL Glucose (74-99) mg/dL POC Glucose (mg/dL) 106 H (75-99) mg/dL Alkaline Phosphatase 127 H (38-126) U/L Troponin I (0.000-0.034) ng/mL Total Protein 5.1 L (6.3-8.2) g/dL Albumin 2.5 L (3.5-5.0) g/dL Amylase (30-110) U/L Urine Appearance (Clear) Urine Protein (Negative) Urine Blood (Negative) Ur Leukocyte Esterase (Negative) Urine WBC (0-5) /hpf Urine WBC Clumps (None) /hpf Urine Bacteria (None) /hpf Microbiology - Last 24 Hours (Table) 06/06/18 11:06 Blood Culture - Final Blood 06/06/18 09:20 Urine Culture - Preliminary Urine,Catheterized Assessment and Plan Plan: 1 severe acute abdominal pain: Combination of pyelonephritis, patient was started on IV antibiotics, was supposed to see urology to decide on the term of the treatment and whether she will be stable to have biopsy from the mass by or not. 2 pyelonephritis, sepsis with UTI with finding on the CT consistent pyelonephritis, will continue IV antibiotics for now and she will need an extended oral antibiotic complete total of 10 days. 3 left kidney mass versus soft tissue in the peritoneum: Not a clear etiology might require biopsy oncology was consulted as well. And agree with CT-guided biopsy. 4 Parkinson disease: Patient has been on Sinemet continue medication. 5 hypertension: Has been on daily continue medication. With losartan and metoprolol. 6 hyperlipidemia: On Zocor 10 mg daily continue medication. 7 gout: Patient has been on allopurinol 100 mg daily. 8 CAD: No chest pain or angina continue Lasix, atenolol and statin. 9 mild COPD: Has been on Singulair and DuoNeb. 10 diabetes: Patient is on glyburide 2 mg daily Accu-Chek with status post coverage and be done. 11 chronic anemia iron deficiency has been on iron supplement along with Procrit seen oncology on regular basis.
[2018-06-07] MEDS: ATENOLOL 50 MG TAB PO SCH (10:21)
[2018-06-07] MEDS: ALLOPURINOL 100 MG TAB PO SCH (10:21)
[2018-06-07] MEDS: ALPRAZolam 0.25 MG TAB PO SCH ×2 (10:21→19:58)
[2018-06-07] MEDS: ASPIRIN 81 MG PO SCH (10:21)
[2018-06-07] MEDS: CARBIDOPA-LEVODOPA 25-100 MG 1 EACH TAB PO SCH ×2 (10:22→19:58)
[2018-06-07] MEDS: CITALOPRAM HYDROBROMIDE 10 MG TAB PO SCH (10:23)
[2018-06-07] MEDS: CHOLECALCIFEROL 1,000 UNIT TAB PO SCH (10:23)
[2018-06-07] MEDS: CYANOCOBALAMIN 500 MCG TAB PO SCH (10:24)
[2018-06-07] MEDS: HEPARIN SODIUM,PORCINE 5,000 UNIT/ML 1 ML VIAL SQ SCH ×2 (10:25→19:58)
[2018-06-07] MEDS: LOSARTAN 50 MG TAB PO SCH (10:26)
[2018-06-07] MEDS: MONTELUKAST 10 MG TAB PO SCH (10:26)
[2018-06-07] MEDS: SENNOSIDES-DOCUSATE SODIUM 1 EACH TAB PO SCH ×2 (10:27→19:58)
[2018-06-07] MEDS: DICLOFENAC SODIUM GEL 100 GM TUBE TOPICAL SCH ×2 (11:06→22:21)
[2018-06-07] MEDS: NYSTATIN 100,000 UNIT/GM POWD 15 GM TOPICAL SCH (11:08)
[2018-06-07] MEDS: ACETAMINOPHEN TAB 500 MG TAB PO SCH ×3 (11:16→22:22)
[2018-06-07] MEDS: HYDROCORTISONE 1% CREAM 30 GM TUBE TOPICAL SCH (11:17)
[2018-06-07] MEDS: MUPIROCIN 2% OINT 22 GM TUBE TOPICAL SCH (11:19)
[2018-06-07 12:02] LABS: Glucose,Whole Blood 80 mg/dL (75-99)
[2018-06-07 14:53] LABS: Hemoglobin A1C 5.7 % (4.0-6.0)
[2018-06-07 16:26] LABS: Glucose,Whole Blood 90 mg/dL (75-99)
[2018-06-07] MEDS: MULTIVITAMINS, THERA 1 EACH TAB PO SCH (17:34)
--- NOTE | 2018-06-07 18:08 | P.GSCN ---
History of Present Illness Consult date: 06/07/18 Reason for Consult: Pyelonephritis, pelvic mass Requesting physician: Gama Arias History of present illness: The patient is an 88-year-old white female admitted with left-sided abdominal pain, dysuria, and incontinence. She states that she has been treated for kidney infections in the past. A CT scan shows left perinephric stranding and edema, consistent with pyelonephritis. The CT scan also revealed a 10 x 12 cm left-sided abdominal mass, as well as bladder distention. Review of Systems - Constitutional Reports chills, Reports fever, Reports weakness - Gastrointestinal Reports abdominal pain, Reports nausea, Reports vomiting - Genitourinary Genitourinary: Reports dysuria, Denies hematuria Past Medical History Past Medical History: Coronary Artery Disease (CAD), Chest Pain / Angina, Diabetes Mellitus, GERD/Reflux, Hyperlipidemia, Hypertension, Renal Disease, Rheumatoid Arthritis (RA), Sleep Apnea/CPAP/BIPAP, Thyroid Disorder Additional Past Medical History / Comment(s): NIDDM type II, neuropathy bilateral hands/feet, past L foot kwadwo ulcer, past bilateral lower leg cellulitis, pt currently has sores top of L foot and a bandage and also a bandage between toes of R foot, DVT in 2011-lower extremity, past medical record indicates intracranial bleed/spinal leak but pt has no recall of this, chronic renal disease/interstitial nephrititis, UTIs, DDD, osteopenia, constipation, anemia with past procrit injections, EDUARD-no device used. History of Any Multi-Drug Resistant Organisms: None Reported Past Surgical History: Breast Surgery, Hysterectomy, Joint Replacement, Orthopedic Surgery Additional Past Surgical History / Comment(s): laminectomy, discectomy, low back epidural injections, L foot debridements, total bilateral knee replacements , bilateral carpal tunnel releases, L breast benign biopsy, hiatal hernia repair , colonoscopy, bilateral cataract removals. Past Anesthesia/Blood Transfusion Reactions: No Reported Reaction Smoking Status: Former smoker - Past Family History Father Family Medical History: Coronary Artery Disease (CAD), CVA/TIA, Myocardial Infarction ([place]) Additional Family Medical History / Comment(s): Father of a CVA at the age of 72 yrs. Mother Family Medical History: Cancer Additional Family Medical History / Comment(s): Mother was a colon cancer survivor. She in a MVA at the age of 65yrs. Medications and Allergies Home Medications Medication Instructions Recorded Confirmed Type Aspirin 81 mg PO DAILY 04/19/14 06/06/18 History ALPRAZolam [Xanax] 0.25 mg PO BID 03/11/18 06/06/18 History Acetaminophen Tab [Tylenol] 1,000 mg PO TID 03/11/18 06/06/18 History Allopurinol [Zyloprim] 100 mg PO DAILY 03/11/18 06/06/18 History Atenolol [Tenormin] 50 mg PO DAILY 03/11/18 06/06/18 History Carbidopa-Levodopa 25-100 mg 1 tab PO BID 03/11/18 06/06/18 History [Sinemet 25-100 mg] Cholecalciferol [Vitamin D3] 1,000 mg PO DAILY 03/11/18 06/06/18 History Citalopram Hydrobromide 10 mg PO DAILY 03/11/18 06/06/18 History [Citalopram HBr] Cyanocobalamin [Vitamin B-12] 500 mcg PO DAILY 03/11/18 06/06/18 History Epoetin Lev [Procrit] 20,000 unit SQ Q28D 03/11/18 06/06/18 History Furosemide [Lasix] 40 mg PO BID 03/11/18 06/06/18 History Glimepiride [Amaryl] 2 mg PO DAILY 03/11/18 06/06/18 History Hydrocortisone Cream 1 applic TOPICAL DAILY 03/11/18 06/06/18 History [Hydrocortisone 1% Cream] Ipratropium-Albuterol Nebulize 3 ml INHALATION RT-QID 03/11/18 06/06/18 History [Duoneb 0.5 mg-3 mg/3 ml Soln] Losartan Potassium 100 mg PO DAILY 03/11/18 06/06/18 History Methenamine/Sodium Salicylate 2 cap PO DAILY 03/11/18 06/06/18 History [Cystex Plus Tablet] Montelukast [Singulair] 10 mg PO DAILY 03/11/18 06/06/18 History Multivitamins, Thera [Multivitamin 1 tab PO DAILY 03/11/18 06/06/18 History (formulary)] Nystatin 100,000 Unit/gm Powd 1 applic TOPICAL DAILY 03/11/18 06/06/18 History [Mycostatin Powder] Omeprazole 20 mg PO DAILY 03/11/18 06/06/18 History Sennosides/Docusate Sodium 1 tab PO BID 03/11/18 06/06/18 History [Senna-S Laxative Tablet] Simvastatin [Zocor] 10 mg PO HS 03/11/18 06/06/18 History Diclofenac Sodium Gel [Voltaren 2 gram TOPICAL BID 06/06/18 06/06/18 History Gel] Mupirocin Calcium [Bactroban 2% 1 applic TOPICAL DAILY 06/06/18 06/06/18 History Nasal Oint] traMADol HCL [Ultram] 50 mg PO TID PRN 06/06/18 06/06/18 History Allergies Allergy/AdvReac Type Severity Reaction Status Date / Time Penicillins Allergy Severe Rash/Hives Verified 06/06/18 08:29 sulfacetamide sodium Allergy Severe Rash/Hives Verified 06/06/18 08:29 [From Sulfamide] ciprofloxacin Allergy Intermediate Rash/Hives Verified 06/06/18 08:29 bacitracin Allergy Mild Rash/Hives Verified 06/06/18 08:29 [From Neosporin ([id number])] bacitracin zinc Allergy Mild Rash/Hives Verified 06/06/18 08:29 [From Neosporin ([id number])] neomycin sulfate Allergy Mild Rash/Hives Verified 06/06/18 08:29 [From Neosporin ([id number])] polymyxin B Allergy Mild Rash/Hives Verified 06/06/18 08:29 [From Neosporin ([id number])] ampicillin Allergy Unknown Verified 06/06/18 08:29 buspirone [From BuSpar] Allergy Unknown Verified 06/06/18 08:29 doxycycline Allergy Unknown Verified 06/06/18 08:29 ezetimibe [From Zetia] Allergy Unknown Verified 06/06/18 08:29 hydrocodone Allergy Unknown Verified 06/06/18 08:29 ramipril [From Altace] Allergy Unknown Verified 06/06/18 08:29 ibuprofen AdvReac Intermediate Unknown Verified 06/06/18 08:29 adhesive AdvReac Mild Rash/Hives Verified 06/06/18 08:29 morphine AdvReac Mild Nausea & Verified 06/06/18 08:29 Vomiting cephalexin [From Keflex] AdvReac Unknown Verified 06/06/18 08:29 Surgical - Exam Vital Signs Temp Pulse Resp BP Pulse Ox 98.9 F 60 18 144/66 96 06/06/18 08:17 06/06/18 08:17 06/06/18 08:17 06/06/18 08:17 06/06/18 08:17 - General well developed, well nourished, no distress - Neck no masses, trachea midline - Respiratory normal respiratory effort - Abdomen Abdomen: soft, tender (Mild left-sided tenderness), no masses, no guarding, no rigid, no rebound, no distended - Psychiatric oriented to time, oriented to person, oriented to place, speech is normal, memory intact Results - Labs 06/07/18 05:40 06/07/18 05:40 Abnormal Lab Results - Last 24 Hours (Table) 06/06/18 06/06/18 06/06/18 Range/Units 16:45 20:38 21:50 WBC (3.8-10.6) k/uL RBC (3.80-5.40) m/uL Hgb (11.4-16.0) gm/dL Hct (34.0-46.0) % RDW (11.5-15.5) % Neutrophils # (1.3-7.7) k/uL Lymphocytes # (1.0-4.8) k/uL Sodium (137-145) mmol/L BUN (7-17) mg/dL Creatinine (0.52-1.04) mg/dL POC Glucose (mg/dL) 236 H 202 H (75-99) mg/dL Alkaline Phosphatase (38-126) U/L Troponin I 0.185 H* (0.000-0.034) ng/mL Total Protein (6.3-8.2) g/dL Albumin (3.5-5.0) g/dL 06/07/18 06/07/18 06/07/18 Range/Units 01:31 05:40 05:40 WBC 29.6 H (3.8-10.6) k/uL RBC 2.76 L (3.80-5.40) m/uL Hgb 8.7 L (11.4-16.0) gm/dL Hct 27.1 L (34.0-46.0) % RDW 15.6 H (11.5-15.5) % Neutrophils # 27.8 H (1.3-7.7) k/uL Lymphocytes # 0.6 L (1.0-4.8) k/uL Sodium 129 L (137-145) mmol/L BUN 47 H (7-17) mg/dL Creatinine 1.64 H (0.52-1.04) mg/dL POC Glucose (mg/dL) 106 H (75-99) mg/dL Alkaline Phosphatase 127 H (38-126) U/L Troponin I (0.000-0.034) ng/mL Total Protein 5.1 L (6.3-8.2) g/dL Albumin 2.5 L (3.5-5.0) g/dL 06/07/18 Range/Units 05:42 WBC (3.8-10.6) k/uL RBC (3.80-5.40) m/uL Hgb (11.4-16.0) gm/dL Hct (34.0-46.0) % RDW (11.5-15.5) % Neutrophils # (1.3-7.7) k/uL Lymphocytes # (1.0-4.8) k/uL Sodium (137-145) mmol/L BUN (7-17) mg/dL Creatinine (0.52-1.04) mg/dL POC Glucose (mg/dL) 106 H (75-99) mg/dL Alkaline Phosphatase (38-126) U/L Troponin I (0.000-0.034) ng/mL Total Protein (6.3-8.2) g/dL Albumin (3.5-5.0) g/dL Microbiology - Last 24 Hours (Table) 06/06/18 09:20 Urine Culture - Preliminary Urine,Catheterized Gram Neg Bacilli 06/06/18 11:06 Blood Culture Gram Stain - Preliminary Blood Blood Culture - Preliminary Gram Neg Bacilli 06/06/18 11:06 Blood Culture - Final Blood Diabetes panel 06/07/18 06/07/18 06/07/18 Range/Units 02:27 05:40 05:40 Sodium 129 L (137-145) mmol/L Potassium 5.0 4.5 (3.5-5.1) mmol/L Chloride 100 (98-107) mmol/L Carbon Dioxide 22 (22-30) mmol/L BUN 47 H (7-17) mg/dL Creatinine 1.64 H (0.52-1.04) mg/dL Glucose 87 (74-99) mg/dL Hemoglobin A1c 5.7 (4.0-6.0) % Calcium 8.9 (8.4-10.2) mg/dL AST 17 (14-36) U/L ALT 18 (9-52) U/L Alkaline Phosphatase 127 H (38-126) U/L Total Protein 5.1 L (6.3-8.2) g/dL Albumin 2.5 L (3.5-5.0) g/dL Calcium panel 06/07/18 Range/Units 05:40 Calcium 8.9 (8.4-10.2) mg/dL Albumin 2.5 L (3.5-5.0) g/dL Pituitary panel 06/07/18 06/07/18 Range/Units 02:27 05:40 Sodium 129 L (137-145) mmol/L Potassium 5.0 4.5 (3.5-5.1) mmol/L Chloride 100 (98-107) mmol/L Carbon Dioxide 22 (22-30) mmol/L BUN 47 H (7-17) mg/dL Creatinine 1.64 H (0.52-1.04) mg/dL Glucose 87 (74-99) mg/dL Calcium 8.9 (8.4-10.2) mg/dL Adrenal panel 06/07/18 06/07/18 Range/Units 02:27 05:40 Sodium 129 L (137-145) mmol/L Potassium 5.0 4.5 (3.5-5.1) mmol/L Chloride 100 (98-107) mmol/L Carbon Dioxide 22 (22-30) mmol/L BUN 47 H (7-17) mg/dL Creatinine 1.64 H (0.52-1.04) mg/dL Glucose 87 (74-99) mg/dL Calcium 8.9 (8.4-10.2) mg/dL Total Bilirubin 0.5 (0.2-1.3) mg/dL AST 17 (14-36) U/L ALT 18 (9-52) U/L Alkaline Phosphatase 127 H (38-126) U/L Total Protein 5.1 L (6.3-8.2) g/dL Albumin 2.5 L (3.5-5.0) g/dL - Imaging CT scan - abdomen: report reviewed, image reviewed Assessment and Plan (1) Acute pyelonephritis Current Visit: Yes Status: Acute Code(s): N10 - ACUTE PYELONEPHRITIS SNOMED Code(s): 82320775 Plan: Urine and blood cultures show gram-negative bacilli. The patient is currently receiving ceftriaxone, pending the final culture results. Bladder scan has been ordered to determine if she is in urinary retention, as this would increase the risk of recurrent UTIs. The etiology of the abdominal mass is unclear, though there is a clear plane between the mass and the kidney and it is thus my impression that this is not renal in origin. Time with Patient: Greater than 30
--- NOTE | 2018-06-07 18:28 | P.CONS ---
History of Present Illness - Reason for Consult Consult date: 06/07/18 suspicious kidney mass Requesting physician: Gama Arias - Chief Complaint progressive abdominal and back pain, anorexia - History of Present Illness Mrs. Soriano is a long-standing patient of Dr. Solorzano, initially being seen back in 2011 for anemia of chronic kidney disease. Patient has been maintained on monthly Procrit since that time. Patient has a history of a DVT in her back after surgery and multiple other chronic conditions that are managed well by her PCP. She is a resident of assisted living facility. At assisted living facility patient was noticed to be complaining more of abdominal pain, notable decrease in appetite and constipation. Patient describes pain is across the suprapubic area as well as in the right mid back, persistent, worse with movement, deep breathing and palpation of the area, not associated with urination, bowel movements. No documentation of fever, denies nausea, vomiting , diarrhea, patient is not ambulatory at baseline. Review of Systems 14 point review of systems is negative except as stated in HPI Past Medical History Past Medical History: Coronary Artery Disease (CAD), Chest Pain / Angina, Diabetes Mellitus, GERD/Reflux, Hyperlipidemia, Hypertension, Renal Disease, Rheumatoid Arthritis (RA), Sleep Apnea/CPAP/BIPAP, Thyroid Disorder Additional Past Medical History / Comment(s): NIDDM type II, neuropathy bilateral hands/feet, past L foot kwadwo ulcer, past bilateral lower leg cellulitis, pt currently has sores top of L foot and a bandage and also a bandage between toes of R foot, DVT in 2011-lower extremity, past medical record indicates intracranial bleed/spinal leak but pt has no recall of this, chronic renal disease/interstitial nephrititis, UTIs, DDD, osteopenia, constipation, anemia with past procrit injections, EDUARD-no device used. History of Any Multi-Drug Resistant Organisms: None Reported Past Surgical History: Breast Surgery, Hysterectomy, Joint Replacement, Orthopedic Surgery Additional Past Surgical History / Comment(s): laminectomy, discectomy, low back epidural injections, L foot debridements, total bilateral knee replacements , bilateral carpal tunnel releases, L breast benign biopsy, hiatal hernia repair , colonoscopy, bilateral cataract removals. Past Anesthesia/Blood Transfusion Reactions: No Reported Reaction Past Psychological History: No Psychological Hx Reported Smoking Status: Former smoker Past Alcohol Use History: Rare Past Drug Use History: None Reported - Past Family History Father Family Medical History: Coronary Artery Disease (CAD), CVA/TIA, Myocardial Infarction ([place]) Additional Family Medical History / Comment(s): Father of a CVA at the age of 72 yrs. Mother Family Medical History: Cancer Additional Family Medical History / Comment(s): Mother was a colon cancer survivor. She in a MVA at the age of 65yrs. Medications and Allergies Home Medications Medication Instructions Recorded Confirmed Type Aspirin 81 mg PO DAILY 04/19/14 06/06/18 History ALPRAZolam [Xanax] 0.25 mg PO BID 03/11/18 06/06/18 History Acetaminophen Tab [Tylenol] 1,000 mg PO TID 03/11/18 06/06/18 History Allopurinol [Zyloprim] 100 mg PO DAILY 03/11/18 06/06/18 History Atenolol [Tenormin] 50 mg PO DAILY 03/11/18 06/06/18 History Carbidopa-Levodopa 25-100 mg 1 tab PO BID 03/11/18 06/06/18 History [Sinemet 25-100 mg] Cholecalciferol [Vitamin D3] 1,000 mg PO DAILY 03/11/18 06/06/18 History Citalopram Hydrobromide 10 mg PO DAILY 03/11/18 06/06/18 History [Citalopram HBr] Cyanocobalamin [Vitamin B-12] 500 mcg PO DAILY 03/11/18 06/06/18 History Epoetin Lev [Procrit] 20,000 unit SQ Q28D 03/11/18 06/06/18 History Furosemide [Lasix] 40 mg PO BID 03/11/18 06/06/18 History Glimepiride [Amaryl] 2 mg PO DAILY 03/11/18 06/06/18 History Hydrocortisone Cream 1 applic TOPICAL DAILY 03/11/18 06/06/18 History [Hydrocortisone 1% Cream] Ipratropium-Albuterol Nebulize 3 ml INHALATION RT-QID 03/11/18 06/06/18 History [Duoneb 0.5 mg-3 mg/3 ml Soln] Losartan Potassium 100 mg PO DAILY 03/11/18 06/06/18 History Methenamine/Sodium Salicylate 2 cap PO DAILY 03/11/18 06/06/18 History [Cystex Plus Tablet] Montelukast [Singulair] 10 mg PO DAILY 03/11/18 06/06/18 History Multivitamins, Thera [Multivitamin 1 tab PO DAILY 03/11/18 06/06/18 History (formulary)] Nystatin 100,000 Unit/gm Powd 1 applic TOPICAL DAILY 03/11/18 06/06/18 History [Mycostatin Powder] Omeprazole 20 mg PO DAILY 03/11/18 06/06/18 History Sennosides/Docusate Sodium 1 tab PO BID 03/11/18 06/06/18 History [Senna-S Laxative Tablet] Simvastatin [Zocor] 10 mg PO HS 03/11/18 06/06/18 History Diclofenac Sodium Gel [Voltaren 2 gram TOPICAL BID 06/06/18 06/06/18 History Gel] Mupirocin Calcium [Bactroban 2% 1 applic TOPICAL DAILY 06/06/18 06/06/18 History Nasal Oint] traMADol HCL [Ultram] 50 mg PO TID PRN 06/06/18 06/06/18 History Allergies Allergy/AdvReac Type Severity Reaction Status Date / Time Penicillins Allergy Severe Rash/Hives Verified 06/06/18 08:29 sulfacetamide sodium Allergy Severe Rash/Hives Verified 06/06/18 08:29 [From Sulfamide] ciprofloxacin Allergy Intermediate Rash/Hives Verified 06/06/18 08:29 bacitracin Allergy Mild Rash/Hives Verified 06/06/18 08:29 [From Neosporin ([id number])] bacitracin zinc Allergy Mild Rash/Hives Verified 06/06/18 08:29 [From Neosporin ([id number])] neomycin sulfate Allergy Mild Rash/Hives Verified 06/06/18 08:29 [From Neosporin ([id number])] polymyxin B Allergy Mild Rash/Hives Verified 06/06/18 08:29 [From Neosporin ([id number])] ampicillin Allergy Unknown Verified 06/06/18 08:29 buspirone [From BuSpar] Allergy Unknown Verified 06/06/18 08:29 doxycycline Allergy Unknown Verified 06/06/18 08:29 ezetimibe [From Zetia] Allergy Unknown Verified 06/06/18 08:29 hydrocodone Allergy Unknown Verified 06/06/18 08:29 ramipril [From Altace] Allergy Unknown Verified 06/06/18 08:29 ibuprofen AdvReac Intermediate Unknown Verified 06/06/18 08:29 adhesive AdvReac Mild Rash/Hives Verified 06/06/18 08:29 morphine AdvReac Mild Nausea & Verified 06/06/18 08:29 Vomiting cephalexin [From Keflex] AdvReac Unknown Verified 06/06/18 08:29 Physical Exam Vitals: Vital Signs Temp Pulse Pulse Resp BP Pulse Ox 06/07/18 16:08 88 06/07/18 15:56 80 06/07/18 12:00 98.1 F 75 16 144/64 99 06/07/18 11:55 84 06/07/18 11:48 76 06/07/18 11:24 17 06/07/18 09:20 88 06/07/18 09:11 80 06/07/18 07:52 98.3 F 74 15 128/60 98 06/07/18 03:12 98.3 F 85 18 130/72 97 06/07/18 02:14 51 L 22 136/79 88 L 06/06/18 23:54 82 18 112/56 96 06/06/18 20:00 97.7 F 75 18 124/61 95 Intake and Output 06/07/18 06/07/18 06/07/18 06:59 14:59 22:59 Intake Total 680 Output Total 400 900 Balance -400 680 -900 Intake: Oral 680 Output: Urine 400 900 Other: Voiding Method Indwelling Catheter Indwelling Catheter Weight 94.5 kg - Constitutional General appearance: cooperative, mild distress, obese - EENT Eyes: anicteric sclerae, EOMI ENT: no hard of hearing, hearing grossly normal, no NA/AT, normal oropharynx, no other, no pharyngeal erythema, no thrush, no tonsillar exudates, no tonsillar swelling - Neck Neck: no lymphadenopathy - Respiratory Respiratory: bilateral: CTA (weak effort, pain in right back with deep breathing ) - Cardiovascular Heart sounds: normal: S1, S2 Abnormal Heart Sounds: systolic murmur leg Peripheral Edema: bilateral: 1+ - Gastrointestinal General gastrointestinal: no absent bowel sounds, no decreased bowel sounds, no distended, no hepatomegaly, no hyperactive bowel sounds, normal bowel sounds, no organomegaly, no rigid, no scaphoid, soft, no splenomegaly, no tenderness, no umbilical hernia, no ventral hernia Localized gastrointestinal: tender: epigastric periumbilical - Integumentary Integumentary: pale - Neurologic Neurologic: CNII-XII intact - Musculoskeletal pain with palpation of right posterior costal margin Musculoskeletal: generalized weakness - Psychiatric Psychiatric: A&O x's 3, appropriate affect, intact judgment & insight Results CBC & Chem 7: 06/07/18 05:40 06/07/18 05:40 Labs: Abnormal Lab Results - Last 24 Hours (Table) 06/06/18 06/06/18 06/07/18 Range/Units 20:38 21:50 01:31 WBC (3.8-10.6) k/uL RBC (3.80-5.40) m/uL Hgb (11.4-16.0) gm/dL Hct (34.0-46.0) % RDW (11.5-15.5) % Neutrophils # (1.3-7.7) k/uL Lymphocytes # (1.0-4.8) k/uL Sodium (137-145) mmol/L BUN (7-17) mg/dL Creatinine (0.52-1.04) mg/dL POC Glucose (mg/dL) 202 H 106 H (75-99) mg/dL Alkaline Phosphatase (38-126) U/L Troponin I 0.185 H* (0.000-0.034) ng/mL Total Protein (6.3-8.2) g/dL Albumin (3.5-5.0) g/dL 06/07/18 06/07/18 06/07/18 Range/Units 05:40 05:40 05:42 WBC 29.6 H (3.8-10.6) k/uL RBC 2.76 L (3.80-5.40) m/uL Hgb 8.7 L (11.4-16.0) gm/dL Hct 27.1 L (34.0-46.0) % RDW 15.6 H (11.5-15.5) % Neutrophils # 27.8 H (1.3-7.7) k/uL Lymphocytes # 0.6 L (1.0-4.8) k/uL Sodium 129 L (137-145) mmol/L BUN 47 H (7-17) mg/dL Creatinine 1.64 H (0.52-1.04) mg/dL POC Glucose (mg/dL) 106 H (75-99) mg/dL Alkaline Phosphatase 127 H (38-126) U/L Troponin I (0.000-0.034) ng/mL Total Protein 5.1 L (6.3-8.2) g/dL Albumin 2.5 L (3.5-5.0) g/dL Microbiology - Last 24 Hours (Table) 06/06/18 09:20 Urine Culture - Preliminary Urine,Catheterized Gram Neg Bacilli 06/06/18 11:06 Blood Culture Gram Stain - Preliminary Blood Blood Culture - Preliminary Gram Neg Bacilli 06/06/18 11:06 Blood Culture - Final Blood Comments: pelvis x-ray report reviewed CT scan - abdomen: report reviewed CT scan - pelvis: report reviewed Assessment and Plan Plan: Large mass in the left pelvis: Case was discussed with patient's daughter, who is pt medical advocate, at the bedside. Dr. Arias was present and he and Dr. Delaney discussed the case. It was presented to patient's daughter that this left pelvic mass is an incidental finding. It is not felt to be the origin of pt pain as it is on the opposite side of c/o. Daughter was assured that symptoms would be managed. As for what the mass is, the only way to know the origin is to biopsy. The mass could be slow growing malignancy or it could be benign. Internal medicine recommend performing biopsy after infection is cleared as patient was admitted with sepsis. Will wait for improvement and patient condition before planning a biopsy, which pt daughter in amenable to. In the meantime will discuss case with Interventional radiology to see if the biopsy is amenable percutaneously. Sepsis: Gram neg BC and urine, C&S pend, empiric abx ordered Right back pain: IM managing pain and chronic conditions Anemia of chronic kidney disease: Hgb baseline is 9.5-10.5 range on monthly procrit. Anticipate further decline in Hgb with acute infection. Cont to monitor CBC, conservative transfusions only. Last dose of procrit was 20,000 units on 05/16/18. Will hold off on additional doses for now Doctor attests: I performed a history and physical examination of this patient, developed impression and plan of care, discussed with dictator. I agree with dictators note, documented as a scribe.
[2018-06-07] MEDS: ATORVASTATIN 10 MG TAB PO SCH (19:58)
[2018-06-07 21:02] LABS: Glucose,Whole Blood 86 mg/dL (75-99)
[2018-06-08] MEDS: GLIMEPIRIDE 2 MG TAB PO SCH (05:56)
[2018-06-08] MEDS: PANTOPRAZOLE 40 MG TABLET PO SCH (05:56)
[2018-06-08 06:08] LABS: Glucose,Whole Blood 79 mg/dL (75-99)
[2018-06-08 06:13] LABS: Basophils % (A) 0 %; Eosinophils # (A) 0.3 k/uL (0-0.7); Eosinophils % (A) 2 %; HCT 26.7 % (34.0-46.0); HGB 8.5 gm/dL (11.4-16.0); Lymphocytes # (A) 0.7 k/uL (1.0-4.8); Lymphocytes % (A) 5 %; MCH 31.5 pg (25.0-35.0); MCHC 31.8 g/dL (31.0-37.0); MCV 99.1 fL (80.0-100.0); Macrocytosis Slight; Mean Platelet Volume 7.4; Monocytes # (A) 0.5 k/uL (0-1.0); Monocytes % (A) 3 %; Neutrophils # (A) 13.1 k/uL (1.3-7.7); Neutrophils % (A) 88 %; Platelet Count 399 k/uL (150-450); RDW 15.5 % (11.5-15.5); WBC 14.9 k/uL (3.8-10.6)
[2018-06-08 06:25] LABS: Albumin 2.4 g/dL (3.5-5.0); Potassium 5.1 mmol/L (3.5-5.1); Total Bilirubin 0.4 mg/dL (0.2-1.3); Total Protein 4.8 g/dL (6.3-8.2)
[2018-06-08] MEDS: IPRATROPIUM-ALBUTEROL 3 ML NEB INHALATION SCH ×4 (09:05→20:04)
[2018-06-08] MEDS: LOSARTAN 50 MG TAB PO SCH (10:19)
[2018-06-08] MEDS: MONTELUKAST 10 MG TAB PO SCH (10:20)
[2018-06-08] MEDS: ACETAMINOPHEN TAB 500 MG TAB PO SCH ×3 (10:20→21:56)
[2018-06-08] MEDS: ALLOPURINOL 100 MG TAB PO SCH (10:20)
[2018-06-08] MEDS: ASPIRIN 81 MG PO SCH (10:20)
[2018-06-08] MEDS: CITALOPRAM HYDROBROMIDE 10 MG TAB PO SCH (10:20)
[2018-06-08] MEDS: ATENOLOL 50 MG TAB PO SCH (10:20)
[2018-06-08] MEDS: CARBIDOPA-LEVODOPA 25-100 MG 1 EACH TAB PO SCH ×2 (10:20→21:58)
[2018-06-08] MEDS: ALPRAZolam 0.25 MG TAB PO SCH ×2 (10:20→21:56)
[2018-06-08] MEDS: CYANOCOBALAMIN 500 MCG TAB PO SCH (10:21)
[2018-06-08] MEDS: CHOLECALCIFEROL 1,000 UNIT TAB PO SCH (10:21)
[2018-06-08] MEDS: SENNOSIDES-DOCUSATE SODIUM 1 EACH TAB PO SCH ×2 (10:21→22:03)
[2018-06-08] MEDS: HEPARIN SODIUM,PORCINE 5,000 UNIT/ML 1 ML VIAL SQ SCH ×2 (10:22→21:56)
[2018-06-08 12:00] LABS: Glucose,Whole Blood 63 mg/dL (75-99)
[2018-06-08 12:00] LABS: Glucose,Whole Blood 60 mg/dL (75-99)
[2018-06-08 12:23] LABS: Glucose,Whole Blood 86 mg/dL (75-99)
--- NOTE | 2018-06-08 14:47 | P.PN ---
Subjective Progress Note Date: 06/08/18 88-year-old female one of Dr. Bowman's patient with past medical history of Parkinson disease chronic anemia mild leukocytosis hypothyroidism history of rheumatoid arthritis and CAD who presented to demurs department today at [facility] with complaint of severe abdominal pain fever or chills and worsening pain in the left side from the flank all the way to the groin area symptoms become much worse associated with significant nausea with no vomiting also polyuria frequency and urgency with worsening incontinence. Surprisingly found to have significant leukocytosis with white blood cell 27, 000 her last baseline was 12,000 only. With severity of her pain ended up going for CT of the abdomen showed mass in the left side close to the kidney and the soft tissue along with infection most likely pyelonephritis on the left side. Patient was started on gram-negative coverage antibiotic-san blood culture and urine culture in process patient be admitted to the hospital the above problem will be seen urology in possibly, also we'll consult oncology based on the recommendation might need biopsy when the infection is a clear. Patient also has mild altered mental status most likely consistent with a current infection at this point. 06/08: Blood culture is positive for E. coli and urine culture E. coli and Aerococcus urinae. Consult has been admitted for Dr. Coreas and repeat blood culture ordered. Patient has been evaluated by oncology regarding incidental finding of left pelvic mass. Plan will be for biopsy once infection is cleared. Oncology to discuss case with interventional radiology to see if biopsy is amenable to percutaneously. Patient has been evaluated by Dr. Singletary. Patient did require Dobbins catheter placement for retention. Last temperature max was 101.4 on June [id number]. Heart rate is running in the 70s and 80s, blood pressure 131/61 and pulse ox 97% on 3 L nasal cannula. Patient does not have home oxygen. White count is 14.9, hemoglobin 8.5, BUN 44 and creatinine 1.6. Sodium 1:30. Blood sugars are running 79-86. Alkaline phosphatase 173. Tramadol changed to scheduled twice daily per family request. Tramadol to be held for any sedation. Case management has discussed discharge planning with the family and they have been looking into [facility] homes and patient may be considered hospice if unable to return to [facility]. Review of Systems CONSTITUTIONAL: Well-developed no acute respiratory distress. Positive fever or chills and change mental status EYES: No icterus sclerae, no conjunctivitis. EARS, NOSE, MOUTH, THROAT, and FACE: No sore throat, lymphadenopathy, carotid bruits or deformity. RESPIRATORY: No SOB cough or wheezes. CARDIOVASCULAR: No CP, Palpitation, PND, Orthopnea, or angina. GASTROINTESTINAL: Positive Abd pain, positive Nausea and vomiting, no Diarrhea or constipation, No GI Bleed, no distention or masses. Worsening abdominal pain GENITOURINARY: Significant infection with pyelonephritis left flank pain recurrent pain burning discomfort. INTEGUMENT/BREAST: Negative for any muscular injury with mild osteoarthritis.. HEMATOLOGIC/LYMPHATIC: Negative for bleed or purpura. MUSCULOSKELTAL: Negative for Myalgia or arthralgia. NEURLOGICAL: No LOC, Sz or syncope, blurred vision dizziness or abnormality.. Positive mild Alter mental status. BEHAVIORAL/PSYCH: Negative. ENDOCRINE: Low blood sugar Objective - Vital Signs Vital signs: Vital Signs Temp 98.4 F 06/08/18 11:45 Pulse 80 06/08/18 13:29 Resp 18 06/08/18 11:45 BP 131/61 06/08/18 11:45 Pulse Ox 97 06/08/18 11:45 Intake & Output 06/07/18 06/08/18 06/08/18 18:59 06:59 18:59 Intake Total 680 480 360 Output Total 900 600 800 Balance -220 -120 -440 Weight 96.5 kg Intake: Oral 680 480 360 Output: Urine 900 600 800 Other: Voiding Method Indwelling Catheter Indwelling Catheter Indwelling Catheter - Exam General Appearance: Alert, cooperative, no distress, appears stated age. Positive tremor and shakiness typical for Parkinson's along with recurrent from her infection. Neck HEENT: Supple, no lymphadenopathy, no thyroid enlargement, no carotid bruits. Lungs: Clear to auscultation without crackles or wheezes no rhonchi, no deformity. Chest Wall: Chest wall normal expansion with deep inspiration no tenderness and no deformity was found on exam, no costochondral pain or discomfort. Heart: Regular rate and rhythm, S1, S2 normal, no murmur, rub or gallop. Mild tachycardia as well Back: Symmetric, positive left-sided flank pain and discomfort along with tenderness no deformity or abnormality over the spinal cord area. Abdomen: Soft distended with slight tenderness in the left side with no pulsation not able to feel any lymph node enlargement at this point no hepatosplenomegaly Extremities: Extremities normal, atraumatic, no cyanosis or edema. Pulses: 2+ and symmetric. Skin: Skin color, texture, tugor normal, no rashes or lesions. Neurologic: Alert slightly confused, mild tremor typical for Parkinson's disease. cranial nerves II through XII intact, no motor deficit, no abnormal balance or gait. Patient is oriented to person and place. - Labs CBC & Chem 7: 06/08/18 05:24 06/08/18 05:24 Labs: Abnormal Lab Results - Last 24 Hours (Table) 06/08/18 06/08/18 06/08/18 Range/Units 05:24 05:24 11:45 WBC 14.9 H (3.8-10.6) k/uL RBC 2.70 L (3.80-5.40) m/uL Hgb 8.5 L (11.4-16.0) gm/dL Hct 26.7 L (34.0-46.0) % Neutrophils # 13.1 H (1.3-7.7) k/uL Lymphocytes # 0.7 L (1.0-4.8) k/uL Sodium 130 L (137-145) mmol/L BUN 44 H (7-17) mg/dL Creatinine 1.60 H (0.52-1.04) mg/dL POC Glucose (mg/dL) 60 L (75-99) mg/dL Alkaline Phosphatase 173 H (38-126) U/L Total Protein 4.8 L (6.3-8.2) g/dL Albumin 2.4 L (3.5-5.0) g/dL 06/08/18 Range/Units 11:58 WBC (3.8-10.6) k/uL RBC (3.80-5.40) m/uL Hgb (11.4-16.0) gm/dL Hct (34.0-46.0) % Neutrophils # (1.3-7.7) k/uL Lymphocytes # (1.0-4.8) k/uL Sodium (137-145) mmol/L BUN (7-17) mg/dL Creatinine (0.52-1.04) mg/dL POC Glucose (mg/dL) 63 L (75-99) mg/dL Alkaline Phosphatase (38-126) U/L Total Protein (6.3-8.2) g/dL Albumin (3.5-5.0) g/dL Microbiology - Last 24 Hours (Table) 06/06/18 09:20 Urine Culture - Final Urine,Catheterized Escherichia coli Aerococcus urinae 06/06/18 11:06 Blood Culture Gram Stain - Final Blood Blood Culture - Final Escherichia coli Assessment and Plan Plan: 1 gram-negative sepsis, gram-negative bacteremia secondary to UTI and pyelonephritis complicated by urinary retention requiring Dobbins catheter placement. Consult with urology appreciated. Consult added for Dr. Coreas. Patient is currently on ceftriaxone. Repeat blood culture ordered. 2 metabolic encephalopathy secondary to sepsis. Treat as in #1. 3 left pelvic mass, incidental finding on CAT scan. Plan for CT-guided biopsy. 4 Parkinson disease: Patient has been on Sinemet continue medication. 5 hypertension: Has been on daily continue medication. With losartan and metoprolol. 6 hyperlipidemia: On Zocor 10 mg daily continue medication. 7 gout, stable: Patient has been on allopurinol 100 mg daily. 8 CAD: No chest pain or angina continue Lasix, atenolol and statin. 9 mild COPD: Has been on Singulair and DuoNeb. 10 diabetes mellitus type II: Patient is on glyburide 2 mg daily Accu-Chek with status post coverage and be done. 11 chronic anemia of chronic disease. Continue iron supplement along with Procrit seen oncology on regular basis. Discharge plan: To be determined Impression and plan of care have been directed as dictated by the signing physician. Jesi Alanis nurse practitioner acting as scribe for signing physician.
--- NOTE | 2018-06-08 15:30 | P.CONS ---
History of Present Illness - Reason for Consult Consult date: 06/08/18 - Chief Complaint Abdominal pain - History of Present Illness 88-year-old female who has multiple underlying medical issues which include Parkinson's disease, chronic anemia, hypothyroidism, rheumatoid arthritis emergency disease and mild leukocytosis presents to the emergency center with complaints of progressive and severe abdominal pain. She was having significant pain on the left flank that radiated into her groin area. She difficulty with nausea but daughter did not think she had emesis. She is having difficulties with fever and chill but no rigors. Because she felt so poorly and was having urinary urgency and frequency and worsening incontinence she was brought to the emergency center. He will blood cell count of 27,000 was noted and because of her severe pain computed tomography scan of the abdomen was performed. Evidence of a likely left-sided pyelonephritis as well as an indistinct mass to the left psoas area. The patient consequently has been admitted and the infectious diseases consultation requested regarding antimicrobial therapy. Review of Systems Patient is pleasantly confused only complaining of abdominal pain HEENT:Denies headache or acute visual change. Denies sinus or mouth discomforts. Denies neck stiffness or pain. Denies significant oral cavity pain. Denies difficulty on swallowing. Lungs: Denies significant shortness of breath, cough, sputum production, or hemoptysis. Cardiovascular: Denies significant shortness of breath, chest pain, chest wall pain, orthopnea, dyspnea on exertion, syncope Gastrointestinal: Complains of abdominal pain and denies nausea or emesis. ate her lunch which was bagged salad sandwich which she relates was excellent. She' s having no other complaints except of some generalized abdominal discomfort which is low. Musculoskeletal: denies significant myalgias or arthralgias. No new joint swelling. Denies new back pain. Skin: Denies new rash or lesions. No new ulcers or wounds are related.. Neuro: Denies headache or visual change. Denies any new onset weakness or difficulty with ambulation. Denies falls or seizures. Psychiatric:Denies anxiety or depression. Endocrine: Does feel fatigued Past Medical History Past Medical History: Coronary Artery Disease (CAD), Chest Pain / Angina, Diabetes Mellitus, GERD/Reflux, Hyperlipidemia, Hypertension, Renal Disease, Rheumatoid Arthritis (RA), Sleep Apnea/CPAP/BIPAP, Thyroid Disorder Additional Past Medical History / Comment(s): NIDDM type II, neuropathy bilateral hands/feet, past L foot kwadwo ulcer, past bilateral lower leg cellulitis, pt currently has sores top of L foot and a bandage and also a bandage between toes of R foot, DVT in 2011-lower extremity, past medical record indicates intracranial bleed/spinal leak but pt has no recall of this, chronic renal disease/interstitial nephrititis, UTIs, DDD, osteopenia, constipation, anemia with past procrit injections, EDUARD-no device used. History of Any Multi-Drug Resistant Organisms: None Reported Past Surgical History: Breast Surgery, Hysterectomy, Joint Replacement, Orthopedic Surgery Additional Past Surgical History / Comment(s): laminectomy, discectomy, low back epidural injections, L foot debridements, total bilateral knee replacements , bilateral carpal tunnel releases, L breast benign biopsy, hiatal hernia repair , colonoscopy, bilateral cataract removals. Past Anesthesia/Blood Transfusion Reactions: No Reported Reaction Past Psychological History: No Psychological Hx Reported Additional Psychological History / Comment(s): Lives in a assisted living situation. . No animal exposures. No recent travels Smoking Status: Former smoker Past Alcohol Use History: Rare Past Drug Use History: None Reported - Past Family History Father Family Medical History: Coronary Artery Disease (CAD), CVA/TIA, Myocardial Infarction ([place]) Additional Family Medical History / Comment(s): Father of a CVA at the age of 72 yrs. Mother Family Medical History: Cancer Additional Family Medical History / Comment(s): Mother was a colon cancer survivor. She in a MVA at the age of 65yrs. Medications and Allergies Home Medications and Allergies Comment(s): Current Medications Acetaminophen (Tylenol Tab) 650 mg PO Q6HR PRN PRN Reason: Mild Pain or Fever > 100.5 Last Admin: 06/07/18 22:20 Dose: 650 mg Acetaminophen (Tylenol Tab) 1,000 mg PO TID [facility] Last Admin: 06/08/18 10:20 Dose: 1,000 mg Albuterol/Ipratropium (Duoneb 0.5 Mg-3 Mg/3 Ml Soln) 3 ml INHALATION RT-QID [facility] Last Admin: 06/08/18 13:20 Dose: 3 ml Allopurinol (Zyloprim) 100 mg PO DAILY [facility] Last Admin: 06/08/18 10:20 Dose: 100 mg Alprazolam (Xanax) 0.25 mg PO BID [facility] Last Admin: 06/08/18 10:20 Dose: 0.25 mg Aspirin (Aspirin) 81 mg PO DAILY [facility] Last Admin: 06/08/18 10:20 Dose: 81 mg Atenolol (Tenormin) 50 mg PO DAILY [facility] Last Admin: 06/08/18 10:20 Dose: 50 mg Atorvastatin Calcium (Lipitor) 10 mg PO HS [facility] Last Admin: 06/07/18 19:58 Dose: 10 mg Carbidopa/Levodopa (Sinemet 25-100) 1 each PO BID [facility] Last Admin: 06/08/18 10:20 Dose: 1 each Cholecalciferol (Vitamin D3) 1,000 unit PO DAILY [facility] Last Admin: 06/08/18 10:21 Dose: 1,000 unit Citalopram Hydrobromide (Celexa) 10 mg PO DAILY [facility] Last Admin: 06/08/18 10:20 Dose: 10 mg Cyanocobalamin (Vitamin B-12) 500 mcg PO DAILY [facility] Last Admin: 06/08/18 10:21 Dose: 500 mcg Darbepoetin Lev (Aranesp) 60 mcg SQ Q28D [facility] Diclofenac Sodium (Voltaren Gel) 2 gm TOPICAL BID [facility] Last Admin: 06/07/18 22:21 Dose: 2 gm Glimepiride (Amaryl) 2 mg PO AC-BRKFST [facility] Last Admin: 06/08/18 05:56 Dose: 2 mg Heparin Sodium (Porcine) (Heparin) 5,000 unit SQ Q12HR [facility] Last Admin: 06/08/18 10:22 Dose: 5,000 unit Hydrocortisone (Hydrocortisone 1% Cream) 1 applic TOPICAL DAILY [facility] Last Admin: 06/07/18 11:17 Dose: Not Given Ceftriaxone Sodium 1,000 mg/ (Sodium Chloride) 50 mls @ 100 mls/hr IVPB Q12HR [facility] Last Admin: 06/08/18 10:19 Dose: 100 mls/hr Losartan Potassium (Cozaar) 100 mg PO DAILY [facility] Last Admin: 06/08/18 10:19 Dose: 100 mg Montelukast Sodium (Singulair) 10 mg PO DAILY [facility] Last Admin: 06/08/18 10:20 Dose: 10 mg Multivitamins (Theragran) 1 each PO DAILY@1200 [facility] Last Admin: 06/07/18 17:34 Dose: Not Given Mupirocin (Bactroban Oint) 1 applic TOPICAL DAILY [facility] Last Admin: 06/07/18 11:19 Dose: Not Given Naloxone HCl (Narcan) 0.2 mg IV Q2M PRN PRN Reason: Opioid Reversal Methenamine/Sodium Salicylate [Cystex Plus Tablet] 2 Cap 2 cap PO DAILY [facility] Last Admin: 06/08/18 10:22 Dose: Not Given Nystatin (Mycostatin Powder) 1 applic TOPICAL DAILY [facility] Last Admin: 06/07/18 11:08 Dose: 1 applic Ondansetron HCl (Zofran) 4 mg IVP Q8HR PRN PRN Reason: Nausea And Vomiting Last Admin: 06/07/18 01:21 Dose: 4 mg Pantoprazole Sodium (Protonix) 40 mg PO AC-BRKFST [facility] Last Admin: 06/08/18 05:56 Dose: 40 mg Senna/Docusate Sodium (Senokot-S) 1 each PO BID [facility] Last Admin: 06/08/18 10:21 Dose: 1 each Tramadol HCl (Ultram) 50 mg PO BID [facility] Home Medications Medication Instructions Recorded Confirmed Type Aspirin 81 mg PO DAILY 04/19/14 06/06/18 History ALPRAZolam [Xanax] 0.25 mg PO BID 03/11/18 06/06/18 History Acetaminophen Tab [Tylenol] 1,000 mg PO TID 03/11/18 06/06/18 History Allopurinol [Zyloprim] 100 mg PO DAILY 03/11/18 06/06/18 History Atenolol [Tenormin] 50 mg PO DAILY 03/11/18 06/06/18 History Carbidopa-Levodopa 25-100 mg 1 tab PO BID 03/11/18 06/06/18 History [Sinemet 25-100 mg] Cholecalciferol [Vitamin D3] 1,000 mg PO DAILY 03/11/18 06/06/18 History Citalopram Hydrobromide 10 mg PO DAILY 03/11/18 06/06/18 History [Citalopram HBr] Cyanocobalamin [Vitamin B-12] 500 mcg PO DAILY 03/11/18 06/06/18 History Epoetin Lev [Procrit] 20,000 unit SQ Q28D 03/11/18 06/06/18 History Furosemide [Lasix] 40 mg PO BID 03/11/18 06/06/18 History Glimepiride [Amaryl] 2 mg PO DAILY 03/11/18 06/06/18 History Hydrocortisone Cream 1 applic TOPICAL DAILY 03/11/18 06/06/18 History [Hydrocortisone 1% Cream] Ipratropium-Albuterol Nebulize 3 ml INHALATION RT-QID 03/11/18 06/06/18 History [Duoneb 0.5 mg-3 mg/3 ml Soln] Losartan Potassium 100 mg PO DAILY 03/11/18 06/06/18 History Methenamine/Sodium Salicylate 2 cap PO DAILY 03/11/18 06/06/18 History [Cystex Plus Tablet] Montelukast [Singulair] 10 mg PO DAILY 03/11/18 06/06/18 History Multivitamins, Thera [Multivitamin 1 tab PO DAILY 03/11/18 06/06/18 History (formulary)] Nystatin 100,000 Unit/gm Powd 1 applic TOPICAL DAILY 03/11/18 06/06/18 History [Mycostatin Powder] Omeprazole 20 mg PO DAILY 03/11/18 06/06/18 History Sennosides/Docusate Sodium 1 tab PO BID 03/11/18 06/06/18 History [Senna-S Laxative Tablet] Simvastatin [Zocor] 10 mg PO HS 03/11/18 06/06/18 History Diclofenac Sodium Gel [Voltaren 2 gram TOPICAL BID 06/06/18 06/06/18 History Gel] Mupirocin Calcium [Bactroban 2% 1 applic TOPICAL DAILY 06/06/18 06/06/18 History Nasal Oint] traMADol HCL [Ultram] 50 mg PO TID PRN 06/06/18 06/06/18 History Allergies Allergy/AdvReac Type Severity Reaction Status Date / Time Penicillins Allergy Severe Rash/Hives Verified 06/06/18 08:29 sulfacetamide sodium Allergy Severe Rash/Hives Verified 06/06/18 08:29 [From Sulfamide] ciprofloxacin Allergy Intermediate Rash/Hives Verified 06/06/18 08:29 bacitracin Allergy Mild Rash/Hives Verified 06/06/18 08:29 [From Neosporin ([id number])] bacitracin zinc Allergy Mild Rash/Hives Verified 06/06/18 08:29 [From Neosporin ([id number])] neomycin sulfate Allergy Mild Rash/Hives Verified 06/06/18 08:29 [From Neosporin ([id number])] polymyxin B Allergy Mild Rash/Hives Verified 06/06/18 08:29 [From Neosporin ([id number])] ampicillin Allergy Unknown Verified 06/06/18 08:29 buspirone [From BuSpar] Allergy Unknown Verified 06/06/18 08:29 doxycycline Allergy Unknown Verified 06/06/18 08:29 ezetimibe [From Zetia] Allergy Unknown Verified 06/06/18 08:29 hydrocodone Allergy Unknown Verified 06/06/18 08:29 ramipril [From Altace] Allergy Unknown Verified 06/06/18 08:29 ibuprofen AdvReac Intermediate Unknown Verified 06/06/18 08:29 adhesive AdvReac Mild Rash/Hives Verified 06/06/18 08:29 morphine AdvReac Mild Nausea & Verified 06/06/18 08:29 Vomiting cephalexin [From Keflex] AdvReac Unknown Verified 06/06/18 08:29 Physical Exam Vitals: Vital Signs Temp Pulse Pulse Resp BP Pulse Ox 06/08/18 13:29 80 06/08/18 13:20 80 06/08/18 11:45 98.4 F 74 18 131/61 97 06/08/18 09:15 80 06/08/18 09:05 80 06/08/18 08:50 98.4 F 78 18 149/68 97 06/08/18 03:47 98.7 F 82 18 135/71 97 06/07/18 23:17 88 18 130/62 98 06/07/18 21:19 84 06/07/18 21:07 83 96 06/07/18 20:00 98.9 F 92 18 125/57 97 06/07/18 16:08 88 06/07/18 16:00 101.4 F H 105 H 14 145/65 100 06/07/18 15:56 80 Intake and Output 06/08/18 06/08/18 06/08/18 06:59 14:59 22:59 Intake Total 240 360 Output Total 600 800 Balance -360 -440 Intake: Oral 240 360 Output: Urine 600 800 Other: Voiding Method Indwelling Catheter Indwelling Catheter Weight 96.5 kg 88-year-old woman who is comfortable at this time. She is not in acute distress pleasantly confused HEENT: Anicteric conjunctiva are pink and moist nasal mucosa grossly intact without significant lesions, there is no thrush. Neck: The neck is supple without significant lymphadenopathy or thyromegaly. Lungs: Good bilateral air entry without significant crackles or wheezing. There is no significant bronchial sounds. There is no egophony or dullness. Heart: Regular rate and rhythm with an audible S1-S2, no S3 no S4. There is no significant murmur click or rub, PMI was nondisplaced. Abdomen: Positive bowel sounds soft , obese, minimal tenderness in the left lower quadrant. Distinct left flank pain. No guarding or rebound. No bruising. No palpable mass or rigidity Extremities: The upper extremities have excellent pulses they are symmetric, no significant petechiae or telangiectasia. No splinter hemorrhages were noted. The lower extremities are free from significant edema. The peripheral pulses were 2+ and symmetric. Neuro: Arousable pleasantly confused able to answer simple questions without great difficulty. Relates that she enjoyed her lunch well. Results CBC & Chem 7: 06/08/18 05:24 06/08/18 05:24 Labs: Abnormal Lab Results - Last 24 Hours (Table) 06/08/18 06/08/18 06/08/18 Range/Units 05:24 05:24 11:45 WBC 14.9 H (3.8-10.6) k/uL RBC 2.70 L (3.80-5.40) m/uL Hgb 8.5 L (11.4-16.0) gm/dL Hct 26.7 L (34.0-46.0) % Neutrophils # 13.1 H (1.3-7.7) k/uL Lymphocytes # 0.7 L (1.0-4.8) k/uL Sodium 130 L (137-145) mmol/L BUN 44 H (7-17) mg/dL Creatinine 1.60 H (0.52-1.04) mg/dL POC Glucose (mg/dL) 60 L (75-99) mg/dL Alkaline Phosphatase 173 H (38-126) U/L Total Protein 4.8 L (6.3-8.2) g/dL Albumin 2.4 L (3.5-5.0) g/dL 06/08/18 Range/Units 11:58 WBC (3.8-10.6) k/uL RBC (3.80-5.40) m/uL Hgb (11.4-16.0) gm/dL Hct (34.0-46.0) % Neutrophils # (1.3-7.7) k/uL Lymphocytes # (1.0-4.8) k/uL Sodium (137-145) mmol/L BUN (7-17) mg/dL Creatinine (0.52-1.04) mg/dL POC Glucose (mg/dL) 63 L (75-99) mg/dL Alkaline Phosphatase (38-126) U/L Total Protein (6.3-8.2) g/dL Albumin (3.5-5.0) g/dL Microbiology - Last 24 Hours (Table) 06/06/18 09:20 Urine Culture - Final Urine,Catheterized Escherichia coli Aerococcus urinae 06/06/18 11:06 Blood Culture Gram Stain - Final Blood Blood Culture - Final Escherichia coli Laboratory Results WBC 14.9 k/uL (3.8-10.6) H 06/08/18 05:24 RBC 2.70 m/uL (3.80-5.40) L 06/08/18 05:24 Hgb 8.5 gm/dL (11.4-16.0) L 06/08/18 05:24 Hct 26.7 % (34.0-46.0) L 06/08/18 05:24 MCV 99.1 fL (80.0-100.0) 06/08/18 05:24 MCH 31.5 pg (25.0-35.0) 06/08/18 05:24 MCHC 31.8 g/dL (31.0-37.0) 06/08/18 05:24 RDW 15.5 % (11.5-15.5) 06/08/18 05:24 Plt Count 399 k/uL (150-450) 06/08/18 05:24 Neutrophils % 88 % 06/08/18 05:24 Lymphocytes % 5 % 06/08/18 05:24 Monocytes % 3 % 06/08/18 05:24 Eosinophils % 2 % 06/08/18 05:24 Basophils % 0 % 06/08/18 05:24 Neutrophils # 13.1 k/uL (1.3-7.7) H 06/08/18 05:24 Lymphocytes # 0.7 k/uL (1.0-4.8) L 06/08/18 05:24 Monocytes # 0.5 k/uL (0-1.0) 06/08/18 05:24 Eosinophils # 0.3 k/uL (0-0.7) 06/08/18 05:24 Basophils # 0.0 k/uL (0-0.2) 06/08/18 05:24 Macrocytosis Slight 06/08/18 05:24 PT 10.3 sec (9.0-12.0) 06/06/18 09:01 INR 1.0 (<1.2) 06/06/18 09:01 APTT 26.8 sec (22.0-30.0) 06/06/18 09:01 Sodium 130 mmol/L (137-145) L 06/08/18 05:24 Potassium 5.1 mmol/L (3.5-5.1) 06/08/18 05:24 Chloride 100 mmol/L (98-107) 06/08/18 05:24 Carbon Dioxide 25 mmol/L (22-30) 06/08/18 05:24 Anion Gap 5 mmol/L 06/08/18 05:24 BUN 44 mg/dL (7-17) H 06/08/18 05:24 Creatinine 1.60 mg/dL (0.52-1.04) H 06/08/18 05:24 Est GFR (CKD-EPI)AfAm 33 (>60 ml/min/1.73 sqM) 06/08/18 05:24 Est GFR (CKD-EPI)NonAf 29 (>60 ml/min/1.73 sqM) 06/08/18 05:24 Glucose 78 mg/dL (74-99) 06/08/18 05:24 POC Glucose (mg/dL) 86 mg/dL (75-99) 06/08/18 12:18 POC Glu Remnant Sorter ID Renee Roldan 06/08/18 12:[address] Glu mg/dL 117 06/07/18 05:40 Hemoglobin A1c 5.7 % (4.0-6.0) 06/07/18 05:40 Plasma Lactic Acid Enrrique 1.7 mmol/L (0.7-2.0) 06/07/18 02:27 Calcium 9.0 mg/dL (8.4-10.2) 06/08/18 05:24 Total Bilirubin 0.4 mg/dL (0.2-1.3) 06/08/18 05:24 AST 22 U/L (14-36) 06/08/18 05:24 ALT 17 U/L (9-52) 06/08/18 05:24 Alkaline Phosphatase 173 U/L (38-126) H 06/08/18 05:24 Total Creatine Kinase 36 U/L (30-135) 06/06/18 21:50 CK-MB (CK-2) 0.9 ng/mL (0.0-2.4) 06/06/18 21:50 CK-MB (CK-2) Rel Index 2.5 06/06/18 21:50 Troponin I 0.185 ng/mL (0.000-0.034) H* 06/06/18 21:50 Total Protein 4.8 g/dL (6.3-8.2) L 06/08/18 05:24 Albumin 2.4 g/dL (3.5-5.0) L 06/08/18 05:24 Amylase <30 U/L (30-110) L 06/06/18 09:01 Lipase 26 U/L (23-300) 06/06/18 09:01 Urine Color Yellow 06/06/18 09:20 Urine Appearance Cloudy (Clear) H 06/06/18 09:20 Urine pH 5.5 (5.0-8.0) 06/06/18 09:20 Ur Specific Vici 1.011 (1.001-1.035) 06/06/18 09:20 Urine Protein 1+ (Negative) H 06/06/18 09:20 Urine Glucose (UA) Negative (Negative) 06/06/18 09:20 Urine Ketones Negative (Negative) 06/06/18 09:20 Urine Blood Small (Negative) H 06/06/18 09:20 Urine Nitrite Negative (Negative) 06/06/18 09:20 Urine Bilirubin Negative (Negative) 06/06/18 09:20 Urine Urobilinogen <2.0 mg/dL (<2.0) 06/06/18 09:20 Ur Leukocyte Esterase Large (Negative) H 06/06/18 09:20 Urine RBC 5 /hpf (0-5) 06/06/18 09:20 Urine WBC 100 /hpf (0-5) H 06/06/18 09:20 Urine WBC Clumps Many /hpf (None) H 06/06/18 09:20 Ur Squamous Epith Cells 3 /hpf (0-4) 06/06/18 09:20 Urine Bacteria Many /hpf (None) H 06/06/18 09:20 Microbiology 06/06/18 09:20 Urine,Catheterized Urine Culture - Final Escherichia coli Aerococcus urinae 06/06/18 11:06 Blood Blood Culture Gram Stain - Final 06/06/18 11:06 Blood Blood Culture - Final Escherichia coli 06/06/18 11:06 Blood Blood Culture - Final Assessment and Plan (1) Acute pyelonephritis Narrative/Plan: 88-year-old female presents to Hospital with increasing abdominal pain. She's had imaging studies performed showing evidence of the left-sided pyelonephritis without true obstruction. There is evidence of the mass near the left psoas muscle of an indistinct etiology. At this time patient will be treated with ceftriaxone based on the findings of E. coli in both the blood in the urine. Follow blood cultures are going to be requested to ensure she cleared her bacteremia. If her pain does not rapidly improve within have concerns in addition to the pyelonephritis as far as etiology of the pain. A psoas abscess or other pathology in the region will need to be considered. The leukocytosis is record related to her current sepsis which is likely related to the pyelonephritis. She's been seen by urology with no need for surgical intervention at this time She has have chronic kidney disease which appears to be stable. We'll likely be working on a course of outpatient intravenous antibiotic therapy. Current Visit: Yes Status: Acute Code(s): N10 - ACUTE PYELONEPHRITIS SNOMED Code(s): 36763297 (2) E coli bacteremia Current Visit: Yes Status: Acute Code(s): R78.81 - BACTEREMIA SNOMED Code( s): 571947545685 (3) E. coli UTI Current Visit: Yes Status: Acute Code(s): N39.0 - URINARY TRACT INFECTION, SITE NOT SPECIFIED; B96.20 - UNSP ESCHERICHIA COLI THE CAUSE OF DISEASES CLASSD [facility] SNOMED Code(s): 204870083
[2018-06-08] MEDS: DICLOFENAC SODIUM GEL 100 GM TUBE TOPICAL SCH ×2 (15:43→21:58)
[2018-06-08] MEDS: MUPIROCIN 2% OINT 22 GM TUBE TOPICAL SCH (15:44)
[2018-06-08] MEDS: NYSTATIN 100,000 UNIT/GM POWD 15 GM TOPICAL SCH (15:44)
[2018-06-08] MEDS: HYDROCORTISONE 1% CREAM 30 GM TUBE TOPICAL SCH (15:44)
[2018-06-08] MEDS: MULTIVITAMINS, THERA 1 EACH TAB PO SCH (15:47)
[2018-06-08 16:22] LABS: Glucose,Whole Blood 58 mg/dL (75-99)
[2018-06-08 18:05] LABS: Glucose,Whole Blood 91 mg/dL (75-99)
[2018-06-08 20:46] LABS: Glucose,Whole Blood 63 mg/dL (75-99)
[2018-06-08 21:30] LABS: Glucose,Whole Blood 98 mg/dL (75-99)
[2018-06-08] MEDS: ATORVASTATIN 10 MG TAB PO SCH (21:58)
[2018-06-08] MEDS: traMADol 50 MG TAB PO SCH (22:03)
[2018-06-09 06:00] LABS: Glucose,Whole Blood 50 mg/dL (75-99)
[2018-06-09] MEDS: GLIMEPIRIDE 2 MG TAB PO SCH (06:30)
[2018-06-09 06:32] LABS: Glucose,Whole Blood 57 mg/dL (75-99)
[2018-06-09] MEDS: PANTOPRAZOLE 40 MG TABLET PO SCH (06:32)
[2018-06-09 07:02] LABS: Glucose,Whole Blood 74 mg/dL (75-99)
[2018-06-09] MEDS: IPRATROPIUM-ALBUTEROL 3 ML NEB INHALATION SCH ×4 (07:14→21:16)
[2018-06-09] MEDS: traMADol 50 MG TAB PO SCH ×2 (10:52→20:51)
[2018-06-09] MEDS: CYANOCOBALAMIN 500 MCG TAB PO SCH (10:52)
[2018-06-09] MEDS: LOSARTAN 50 MG TAB PO SCH (10:52)
[2018-06-09] MEDS: CHOLECALCIFEROL 1,000 UNIT TAB PO SCH (10:52)
[2018-06-09] MEDS: ALPRAZolam 0.25 MG TAB PO SCH ×2 (10:52→20:51)
[2018-06-09] MEDS: CARBIDOPA-LEVODOPA 25-100 MG 1 EACH TAB PO SCH ×2 (10:53→21:01)
[2018-06-09] MEDS: ALLOPURINOL 100 MG TAB PO SCH (10:53)
[2018-06-09] MEDS: ATENOLOL 50 MG TAB PO SCH (10:53)
[2018-06-09] MEDS: SENNOSIDES-DOCUSATE SODIUM 1 EACH TAB PO SCH ×2 (10:53→20:52)
[2018-06-09] MEDS: ASPIRIN 81 MG PO SCH (10:54)
[2018-06-09] MEDS: CITALOPRAM HYDROBROMIDE 10 MG TAB PO SCH (10:55)
[2018-06-09] MEDS: ACETAMINOPHEN TAB 500 MG TAB PO SCH ×3 (10:55→20:52)
[2018-06-09] MEDS: HEPARIN SODIUM,PORCINE 5,000 UNIT/ML 1 ML VIAL SQ SCH ×2 (10:55→20:53)
[2018-06-09] MEDS: NYSTATIN 100,000 UNIT/GM POWD 15 GM TOPICAL SCH (10:56)
[2018-06-09] MEDS: DICLOFENAC SODIUM GEL 100 GM TUBE TOPICAL SCH ×2 (11:08→20:53)
[2018-06-09] MEDS: HYDROCORTISONE 1% CREAM 30 GM TUBE TOPICAL SCH (11:08)
[2018-06-09] MEDS: MONTELUKAST 10 MG TAB PO SCH (11:28)
[2018-06-09 11:34] LABS: Glucose,Whole Blood 221 mg/dL (75-99)
--- NOTE | 2018-06-09 12:30 | P.PN ---
Subjective Progress Note Date: 06/09/18 88-year-old female one of Dr. Bowman's patient with past medical history of Parkinson disease chronic anemia mild leukocytosis hypothyroidism history of rheumatoid arthritis and CAD who presented to demurs department today at [facility] with complaint of severe abdominal pain fever or chills and worsening pain in the left side from the flank all the way to the groin area symptoms become much worse associated with significant nausea with no vomiting also polyuria frequency and urgency with worsening incontinence. Surprisingly found to have significant leukocytosis with white blood cell 27, 000 her last baseline was 12,000 only. With severity of her pain ended up going for CT of the abdomen showed mass in the left side close to the kidney and the soft tissue along with infection most likely pyelonephritis on the left side. Patient was started on gram-negative coverage antibiotic-san blood culture and urine culture in process patient be admitted to the hospital the above problem will be seen urology in possibly, also we'll consult oncology based on the recommendation might need biopsy when the infection is a clear. Patient also has mild altered mental status most likely consistent with a current infection at this point. 06/08: Blood culture is positive for E. coli and urine culture E. coli and Aerococcus urinae. Consult has been admitted for Dr. Coreas and repeat blood culture ordered. Patient has been evaluated by oncology regarding incidental finding of left pelvic mass. Plan will be for biopsy once infection is cleared. Oncology to discuss case with interventional radiology to see if biopsy is amenable to percutaneously. Patient has been evaluated by Dr. Singletary. Patient did require Dobbins catheter placement for retention. Last temperature max was 101.4 on June [id number]. Heart rate is running in the 70s and 80s, blood pressure 131/61 and pulse ox 97% on 3 L nasal cannula. Patient does not have home oxygen. White count is 14.9, hemoglobin 8.5, BUN 44 and creatinine 1.6. Sodium 1:30. Blood sugars are running 79-86. Alkaline phosphatase 173. Tramadol changed to scheduled twice daily per family request. Tramadol to be held for any sedation. Case management has discussed discharge planning with the family and they have been looking into [facility] homes and patient may be considered hospice if unable to return to [facility]. 06/09: Patient has been seen by Dr. Coreas with recommendation for 3 weeks of IV antibiotics. Once blood culture is clear, we'll plan for midline placement. At this point, plan is for biopsy as an outpatient after completion of antibiotics. We are anticipating subacute rehab placement possibly tomorrow at the earliest. Diet has been changed to pured. Patient will be transferred to the [facility] floor today. Patient awakens easily and opens her eyes to verbal stimuli. She denies any complaints today and voices that she is better from yesterday. Patient has been afebrile. Heart rate is running in the 70s and 80s , pulse ox 92% on 2 L nasal cannula. Blood sugars have been running low and, per eye discontinued and patient only on NovoLog scale. Review of Systems CONSTITUTIONAL: Well-developed no acute respiratory distress. Positive fever or chills and change mental status EYES: No icterus sclerae, no conjunctivitis. EARS, NOSE, MOUTH, THROAT, and FACE: No sore throat, lymphadenopathy, carotid bruits or deformity. RESPIRATORY: No SOB cough or wheezes. CARDIOVASCULAR: No CP, Palpitation, PND, Orthopnea, or angina. GASTROINTESTINAL: Positive Abd pain, positive Nausea and vomiting, no Diarrhea or constipation, No GI Bleed, no distention or masses. Worsening abdominal pain GENITOURINARY: Significant infection with pyelonephritis left flank pain recurrent pain burning discomfort. INTEGUMENT/BREAST: Negative for any muscular injury with mild osteoarthritis.. HEMATOLOGIC/LYMPHATIC: Negative for bleed or purpura. MUSCULOSKELTAL: Negative for Myalgia or arthralgia. NEURLOGICAL: No LOC, Sz or syncope, blurred vision dizziness or abnormality. Positive mild altered mental status. BEHAVIORAL/PSYCH: Negative. ENDOCRINE: Low blood sugar Objective - Vital Signs Vital signs: Vital Signs Temp 97.7 F 06/09/18 04:00 Pulse 80 06/09/18 11:22 Resp 22 06/09/18 07:15 BP 147/66 06/09/18 04:00 Pulse Ox 92 L 06/09/18 07:15 Intake & Output 06/08/18 06/09/18 06/09/18 18:59 06:59 18:59 Intake Total 360 150 120 Output Total 800 1250 Balance -440 -1100 120 Weight 96.3 kg Intake: Oral 360 150 120 Output: Urine 800 1250 Other: Voiding Method Indwelling Catheter Indwelling Catheter # Voids 1 - Exam General Appearance: Alert, cooperative, no distress, appears stated age. Positive tremor and shakiness typical for Parkinson's along with recurrent from her infection. Neck HEENT: Supple, no lymphadenopathy, no thyroid enlargement, no carotid bruits. Lungs: Clear to auscultation without crackles or wheezes no rhonchi, no deformity. Chest Wall: Chest wall normal expansion with deep inspiration no tenderness and no deformity was found on exam, no costochondral pain or discomfort. Heart: Regular rate and rhythm, S1, S2 normal, no murmur, rub or gallop. Mild tachycardia as well Back: Symmetric, positive left-sided flank pain and discomfort along with tenderness no deformity or abnormality over the spinal cord area. Abdomen: Soft distended with slight tenderness in the left side with no pulsation not able to feel any lymph node enlargement at this point no hepatosplenomegaly Extremities: Extremities normal, atraumatic, no cyanosis or edema. Pulses: 2+ and symmetric. Skin: Skin color, texture, tugor normal, no rashes or lesions. Neurologic: Alert slightly confused, mild tremor typical for Parkinson's disease. cranial nerves II through XII intact, no motor deficit, no abnormal balance or gait. Patient is oriented to person and place. - Labs CBC & Chem 7: 06/08/18 05:24 06/08/18 05:24 Labs: Abnormal Lab Results - Last 24 Hours (Table) 06/08/18 06/08/18 06/08/18 Range/Units 11:45 11:58 16:16 POC Glucose (mg/dL) 60 L 63 L 58 L (75-99) mg/dL 06/08/18 06/09/18 06/09/18 Range/Units 20:45 05:58 06:31 POC Glucose (mg/dL) 63 L 50 L 57 L (75-99) mg/dL 06/09/18 06/09/18 Range/Units 07:01 11:33 POC Glucose (mg/dL) 74 L 221 H (75-99) mg/dL Microbiology - Last 24 Hours (Table) 06/06/18 09:20 Urine Culture - Final Urine,Catheterized Escherichia coli Aerococcus urinae 06/06/18 11:06 Blood Culture Gram Stain - Final Blood Blood Culture - Final Escherichia coli Assessment and Plan Plan: 1 E. coli sepsis, E. coli bacteremia secondary to UTI and pyelonephritis complicated by urinary retention requiring Dobbins catheter placement. Consult with urology appreciated. Consult added for Dr. Coreas appreciated. Patient is currently on ceftriaxone. Repeat blood culture ordered. Plan is for midline and IV antibiotics for 3 weeks. 2 metabolic encephalopathy secondary to sepsis. Treat as in #1. 3 left pelvic mass, incidental finding on CAT scan. Plan for CT-guided biopsy as an outpatient. 4 Parkinson disease: Patient has been on Sinemet continue medication. 5 hypertension: Has been on daily continue medication. With losartan and metoprolol. 6 hyperlipidemia: On Zocor 10 mg daily continue medication. 7 gout, stable: Patient has been on allopurinol 100 mg daily. 8 CAD: No chest pain or angina continue Lasix, atenolol and statin. 9 mild COPD: Has been on Singulair and DuoNeb. 10 diabetes mellitus type II, uncontrolled secondary to hypoglycemia. Glimepiride discontinued. Continue patient on NovoLog scale only. 11 chronic anemia of chronic disease. Continue iron supplement along with Procrit seen oncology on regular basis. Discharge plan: Subacute rehab for IV antibiotics Impression and plan of care have been directed as dictated by the signing physician. Jesi Alanis nurse practitioner acting as scribe for signing physician.
[2018-06-09] MEDS: INSULIN ASPART (NovoLOG) 100 UNIT/ML VIAL SQ SCH ×3 (13:13→21:01)
[2018-06-09] MEDS: MULTIVITAMINS, THERA 1 EACH TAB PO SCH (13:14)
[2018-06-09 16:43] LABS: Glucose,Whole Blood 154 mg/dL (75-99)
[2018-06-09] MEDS: MUPIROCIN 2% OINT 22 GM TUBE TOPICAL SCH (19:48)
--- NOTE | 2018-06-09 20:17 | P.PN ---
Subjective Progress Note Date: 06/09/18 88-year-old female who has multiple underlying medical issues which include Parkinson's disease, chronic anemia, hypothyroidism, rheumatoid arthritis emergency disease and mild leukocytosis presents to the emergency center with complaints of progressive and severe abdominal pain. She was having significant pain on the left flank that radiated into her groin area. She difficulty with nausea but daughter did not think she had emesis. She is having difficulties with fever and chill but no rigors. Because she felt so poorly and was having urinary urgency and frequency and worsening incontinence she was brought to the emergency center. He will blood cell count of 27,000 was noted and because of her severe pain computed tomography scan of the abdomen was performed. Evidence of a likely left-sided pyelonephritis as well as an indistinct mass to the left psoas area. The patient consequently has been admitted and the infectious diseases consultation requested regarding antimicrobial therapy. 06/09/2018 patient very uncomfortable today due to the arthritis of the spine. Nurse relates did eat breakfast. Objective - Vital Signs Vital signs: Vital Signs Temp 98.5 F 06/09/18 16:30 Pulse 81 06/09/18 17:24 Resp 16 06/09/18 17:24 BP 135/75 06/09/18 16:30 Pulse Ox 97 06/09/18 16:30 Intake & Output 06/09/18 06/09/18 06/10/18 06:59 18:59 06:59 Intake Total 150 360 Output Total 1250 920 Balance -1100 -560 Weight 96.3 kg Intake: Oral 150 360 Output: Urine 1250 920 Other: Voiding Method Indwelling Catheter Indwelling Catheter # Voids 1 # Bowel Movements 0 - Exam 88-year-old woman who is uncomfortable at this time. She is pleasantly confused HEENT: Anicteric conjunctiva are pink and moist nasal mucosa grossly intact without significant lesions, there is no thrush. Neck: The neck is supple without significant lymphadenopathy or thyromegaly. Lungs: Good bilateral air entry without significant crackles or wheezing. There is no significant bronchial sounds. There is no egophony or dullness. Heart: Regular rate and rhythm with an audible S1-S2, no S3 no S4. There is no significant murmur click or rub, PMI was nondisplaced. Abdomen: Positive bowel sounds soft , obese, minimal tenderness in the left lower quadrant. Distinct left flank pain. No guarding or rebound. No bruising. No palpable mass or rigidity Extremities: The upper extremities have excellent pulses they are symmetric, no significant petechiae or telangiectasia. No splinter hemorrhages were noted. The lower extremities are free from significant edema. The peripheral pulses were 2+ and symmetric. Neuro: confused able to answer simple questions without great difficulty. Relates to much pain today related to her bad back - Labs CBC & Chem 7: 06/08/18 05:24 06/08/18 05:24 Labs: Abnormal Lab Results - Last 24 Hours (Table) 06/08/18 06/09/18 06/09/18 Range/Units 20:45 05:58 06:31 POC Glucose (mg/dL) 63 L 50 L 57 L (75-99) mg/dL 06/09/18 06/09/18 06/09/18 Range/Units 07:01 11:33 16:41 POC Glucose (mg/dL) 74 L 221 H 154 H (75-99) mg/dL Microbiology - Last 24 Hours (Table) 06/08/18 16:22 Blood Culture - Preliminary Blood No Growth after 24 hours 06/08/18 16:03 Blood Culture - Final Blood 06/08/18 10:41 Blood Culture - Preliminary Blood No Growth after 24 hours Laboratory Results WBC 14.9 k/uL (3.8-10.6) H 06/08/18 05:24 RBC 2.70 m/uL (3.80-5.40) L 06/08/18 05:24 Hgb 8.5 gm/dL (11.4-16.0) L 06/08/18 05:24 Hct 26.7 % (34.0-46.0) L 06/08/18 05:24 MCV 99.1 fL (80.0-100.0) 06/08/18 05:24 MCH 31.5 pg (25.0-35.0) 06/08/18 05:24 MCHC 31.8 g/dL (31.0-37.0) 06/08/18 05:24 RDW 15.5 % (11.5-15.5) 06/08/18 05:24 Plt Count 399 k/uL (150-450) 06/08/18 05:24 Neutrophils % 88 % 06/08/18 05:24 Lymphocytes % 5 % 06/08/18 05:24 Monocytes % 3 % 06/08/18 05:24 Eosinophils % 2 % 06/08/18 05:24 Basophils % 0 % 06/08/18 05:24 Neutrophils # 13.1 k/uL (1.3-7.7) H 06/08/18 05:24 Lymphocytes # 0.7 k/uL (1.0-4.8) L 06/08/18 05:24 Monocytes # 0.5 k/uL (0-1.0) 06/08/18 05:24 Eosinophils # 0.3 k/uL (0-0.7) 06/08/18 05:24 Basophils # 0.0 k/uL (0-0.2) 06/08/18 05:24 Macrocytosis Slight 06/08/18 05:24 PT 10.3 sec (9.0-12.0) 06/06/18 09:01 INR 1.0 (<1.2) 06/06/18 09:01 APTT 26.8 sec (22.0-30.0) 06/06/18 09:01 Sodium 130 mmol/L (137-145) L 06/08/18 05:24 Potassium 5.1 mmol/L (3.5-5.1) 06/08/18 05:24 Chloride 100 mmol/L (98-107) 06/08/18 05:24 Carbon Dioxide 25 mmol/L (22-30) 06/08/18 05:24 Anion Gap 5 mmol/L 06/08/18 05:24 BUN 44 mg/dL (7-17) H 06/08/18 05:24 Creatinine 1.60 mg/dL (0.52-1.04) H 06/08/18 05:24 Est GFR (CKD-EPI)AfAm 33 (>60 ml/min/1.73 sqM) 06/08/18 05:24 Est GFR (CKD-EPI)NonAf 29 (>60 ml/min/1.73 sqM) 06/08/18 05:24 Glucose 78 mg/dL (74-99) 06/08/18 05:24 POC Glucose (mg/dL) 154 mg/dL (75-99) H 06/09/18 16:41 POC Glu [employer] Anna Anders 06/09/18 16:[address] Glu mg/dL 117 06/07/18 05:40 Hemoglobin A1c 5.7 % (4.0-6.0) 06/07/18 05:40 Plasma Lactic Acid Enrrique 1.7 mmol/L (0.7-2.0) 06/07/18 02:27 Calcium 9.0 mg/dL (8.4-10.2) 06/08/18 05:24 Total Bilirubin 0.4 mg/dL (0.2-1.3) 06/08/18 05:24 AST 22 U/L (14-36) 06/08/18 05:24 ALT 17 U/L (9-52) 06/08/18 05:24 Alkaline Phosphatase 173 U/L (38-126) H 06/08/18 05:24 Total Creatine Kinase 36 U/L (30-135) 06/06/18 21:50 CK-MB (CK-2) 0.9 ng/mL (0.0-2.4) 06/06/18 21:50 CK-MB (CK-2) Rel Index 2.5 06/06/18 21:50 Troponin I 0.185 ng/mL (0.000-0.034) H* 06/06/18 21:50 Total Protein 4.8 g/dL (6.3-8.2) L 06/08/18 05:24 Albumin 2.4 g/dL (3.5-5.0) L 06/08/18 05:24 Amylase <30 U/L (30-110) L 06/06/18 09:01 Lipase 26 U/L (23-300) 06/06/18 09:01 Urine Color Yellow 06/06/18 09:20 Urine Appearance Cloudy (Clear) H 06/06/18 09:20 Urine pH 5.5 (5.0-8.0) 06/06/18 09:20 Ur Specific [place] 1.011 (1.001-1.035) 06/06/18 09:20 Urine Protein 1+ (Negative) H 06/06/18 09:20 Urine Glucose (UA) Negative (Negative) 06/06/18 09:20 Urine Ketones Negative (Negative) 06/06/18 09:20 Urine Blood Small (Negative) H 06/06/18 09:20 Urine Nitrite Negative (Negative) 06/06/18 09:20 Urine Bilirubin Negative (Negative) 06/06/18 09:20 Urine Urobilinogen <2.0 mg/dL (<2.0) 06/06/18 09:20 Ur Leukocyte Esterase Large (Negative) H 06/06/18 09:20 Urine RBC 5 /hpf (0-5) 06/06/18 09:20 Urine WBC 100 /hpf (0-5) H 06/06/18 09:20 Urine WBC Clumps Many /hpf (None) H 06/06/18 09:20 Ur Squamous Epith Cells 3 /hpf (0-4) 06/06/18 09:20 Urine Bacteria Many /hpf (None) H 06/06/18 09:20 Microbiology 06/08/18 16:22 Blood Blood Culture - Preliminary No Growth after 24 hours 06/08/18 16:03 Blood Blood Culture - Final 06/08/18 10:41 Blood Blood Culture - Preliminary No Growth after 24 hours 06/06/18 09:20 Urine,Catheterized Urine Culture - Final Escherichia coli Aerococcus urinae 06/06/18 11:06 Blood Blood Culture Gram Stain - Final 06/06/18 11:06 Blood Blood Culture - Final Escherichia coli 06/06/18 11:06 Blood Blood Culture - Final Assessment and Plan (1) Acute pyelonephritis Narrative/Plan: 88-year-old female presents to Hospital with increasing abdominal pain. She's had imaging studies performed showing evidence of the left-sided pyelonephritis without true obstruction. There is evidence of the mass near the left psoas muscle of an indistinct etiology. At this time patient will be treated with ceftriaxone based on the findings of E. coli in both the blood in the urine. Follow blood cultures are going to be requested to ensure she cleared her bacteremia. If her pain does not rapidly improve within have concerns in addition to the pyelonephritis as far as etiology of the pain. A psoas abscess or other pathology in the region will need to be considered. The leukocytosis is record related to her current sepsis which is likely related to the pyelonephritis. She's been seen by urology with no need for surgical intervention at this time She has had chronic kidney disease which appears to be stable. We'll likely be working on a course of outpatient intravenous antibiotic therapy. 06/09/2018 patient has discomfort related to her back Culture final and will try rocephin at the ECF at discharge for 21 days for the bacteremic pyelonephritis. Await the repeat culture results to determine course and IV access. Leukocytosis is improving. Current Visit: Yes Status: Acute Code(s): N10 - ACUTE PYELONEPHRITIS SNOMED Code(s): 44665098 (2) E coli bacteremia Current Visit: Yes Status: Acute Code(s): R78.81 - BACTEREMIA SNOMED Code( s): 288740718995 (3) E. coli UTI Current Visit: Yes Status: Acute Code(s): N39.0 - URINARY TRACT INFECTION, SITE NOT SPECIFIED; B96.20 - UNSP ESCHERICHIA COLI THE CAUSE OF DISEASES CLASSD [facility] SNOMED Code(s): 548440964
[2018-06-09] MEDS: ATORVASTATIN 10 MG TAB PO SCH (20:51)
[2018-06-09 20:53] LABS: Glucose,Whole Blood 195 mg/dL (75-99)
--- NOTE | 2018-06-09 22:55 | P.PN ---
Progress Note - Text Progress Note Date: 06/09/18 Mrs. Soriano states that she is feeling better. She is afebrile. Urine and blood cultures have shown pansensitive E. coli. It would be my recommendation that she be treated with a full course of antibiotics to treat her acute left pyelonephritis, and she could then undergo a CT-guided needle biopsy of the pre- psoas mass. Please notify me if I can be of any further assistance.
[2018-06-10 05:53] LABS: Glucose,Whole Blood 99 mg/dL (75-99)
[2018-06-10 06:01] VITALS: RESP 20
[2018-06-10] MEDS: INSULIN ASPART (NovoLOG) 100 UNIT/ML VIAL SQ SCH ×2 (06:01→13:06)
[2018-06-10] MEDS: PANTOPRAZOLE 40 MG TABLET PO SCH (06:40)
[2018-06-10] MEDS: IPRATROPIUM-ALBUTEROL 3 ML NEB INHALATION SCH ×3 (08:35→16:14)
[2018-06-10] MEDS: SENNOSIDES-DOCUSATE SODIUM 1 EACH TAB PO SCH (10:23)
[2018-06-10] MEDS: MONTELUKAST 10 MG TAB PO SCH (10:23)
[2018-06-10] MEDS: traMADol 50 MG TAB PO SCH (10:24)
[2018-06-10] MEDS: ACETAMINOPHEN TAB 500 MG TAB PO SCH ×2 (10:32→16:24)
[2018-06-10] MEDS: ASPIRIN 81 MG PO SCH (10:33)
[2018-06-10] MEDS: ALLOPURINOL 100 MG TAB PO SCH (10:33)
[2018-06-10] MEDS: ALPRAZolam 0.25 MG TAB PO SCH (10:33)
[2018-06-10] MEDS: CHOLECALCIFEROL 1,000 UNIT TAB PO SCH (10:34)
[2018-06-10] MEDS: ATENOLOL 50 MG TAB PO SCH (10:34)
[2018-06-10] MEDS: CARBIDOPA-LEVODOPA 25-100 MG 1 EACH TAB PO SCH (10:34)
[2018-06-10] MEDS: CYANOCOBALAMIN 500 MCG TAB PO SCH (10:35)
[2018-06-10] MEDS: CITALOPRAM HYDROBROMIDE 10 MG TAB PO SCH (10:35)
[2018-06-10] MEDS: LOSARTAN 50 MG TAB PO SCH (10:43)
[2018-06-10] MEDS: HEPARIN SODIUM,PORCINE 5,000 UNIT/ML 1 ML VIAL SQ SCH (10:46)
[2018-06-10] MEDS: DICLOFENAC SODIUM GEL 100 GM TUBE TOPICAL SCH (10:59)
[2018-06-10] MEDS: HYDROCORTISONE 1% CREAM 30 GM TUBE TOPICAL SCH (11:02)
[2018-06-10] MEDS: NYSTATIN 100,000 UNIT/GM POWD 15 GM TOPICAL SCH (11:03)
[2018-06-10 11:32] LABS: Glucose,Whole Blood 191 mg/dL (75-99)
[2018-06-10] MEDS ORDERED: MAGNESIUM HYDROXIDE 2,400 MG/10 ML CUP PO PRN (12:19)
--- NOTE | 2018-06-10 12:25 | P.DS ---
Providers Date of admission: 06/06/18 11:25 Expected date of discharge: 06/10/18 Attending physician: Gama Arias Consults: 06/06/18 11:58 Consult Physician Stat Consulting Provider: Brandy Solorzano Consult Reason/Comments: Abdominal mass Do you want consulting provider notified?: Yes 06/06/18 12:47 Consult Physician Routine Consulting Provider: Charli Levine Consult Reason/Comments: L kidney mass Do you want consulting provider notified?: Yes 06/06/18 12:48 Consult Physician Routine Consulting Provider: Brandy Solorzano Consult Reason/Comments: Kidney mass Do you want consulting provider notified?: Yes 06/08/18 09:18 Consult Physician Routine Consulting Provider: Gama Coreas Consult Reason/Comments: bacteremia Do you want consulting provider notified?: Yes Primary care physician: Henri Bowman [facility] Course: 88-year-old female one of Dr. Bowman's patient with past medical history of Parkinson disease chronic anemia mild leukocytosis hypothyroidism history of rheumatoid arthritis and CAD who presented to demurs department today at [facility] with complaint of severe abdominal pain fever or chills and worsening pain in the left side from the flank all the way to the groin area symptoms become much worse associated with significant nausea with no vomiting also polyuria frequency and urgency with worsening incontinence. Surprisingly found to have significant leukocytosis with white blood cell 27, 000 her last baseline was 12,000 only. With severity of her pain ended up going for CT of the abdomen showed mass in the left side close to the kidney and the soft tissue along with infection most likely pyelonephritis on the left side. Patient was started on gram-negative coverage antibiotic-san blood culture and urine culture in process patient be admitted to the hospital the above problem will be seen urology in possibly, also we'll consult oncology based on the recommendation might need biopsy when the infection is a clear. Patient also has mild altered mental status most likely consistent with a current infection at this point. 06/08: Blood culture is positive for E. coli and urine culture E. coli and Aerococcus urinae. Consult has been admitted for Dr. Coreas and repeat blood culture ordered. Patient has been evaluated by oncology regarding incidental finding of left pelvic mass. Plan will be for biopsy once infection is cleared. Oncology to discuss case with interventional radiology to see if biopsy is amenable to percutaneously. Patient has been evaluated by Dr. Singletary. Patient did require Dobbins catheter placement for retention. Last temperature max was 101.4 on June [id number]. Heart rate is running in the 70s and 80s, blood pressure 131/61 and pulse ox 97% on 3 L nasal cannula. Patient does not have home oxygen. White count is 14.9, hemoglobin 8.5, BUN 44 and creatinine 1.6. Sodium 1:30. Blood sugars are running 79-86. Alkaline phosphatase 173. Tramadol changed to scheduled twice daily per family request. Tramadol to be held for any sedation. Case management has discussed discharge planning with the family and they have been looking into [facility] homes and patient may be considered hospice if unable to return to [facility]. 06/09: Patient has been seen by Dr. Coreas with recommendation for 3 weeks of IV antibiotics. Once blood culture is clear, we'll plan for midline placement. At this point, plan is for biopsy as an outpatient after completion of antibiotics. We are anticipating subacute rehab placement possibly tomorrow at the earliest. Diet has been changed to pured. Patient will be transferred [facility] floor today. Patient awakens easily and opens her eyes to verbal stimuli. She denies any complaints today and voices that she is better from yesterday. Patient has been afebrile. Heart rate is running in the 70s and 80s , pulse ox 92% on 2 L nasal cannula. Blood sugars have been running low and, per eye discontinued and patient only on NovoLog scale. 06/10: Patient's mental status is improved today but she continues to have problems with short-term memory loss which is chronic. Repeat blood culture shows no growth so midline will be ordered for today. Patient is planned for Rocephin for 3 week course at the snf. The patient is complaining of constipation for which milk of magnesia added. Also medication added for thrush. Temperature max has been 99.5. Heart rate running in the 70s and 80s, blood pressure 168/70. Blood sugars have been labile running between 99 and 195. Patient will be discharge to [facility] today in stable condition once arrangements are completed and midline is placed. Discharge diagnoses: 1 E. coli sepsis, E. coli bacteremia secondary to UTI and pyelonephritis secondary to urinary retention requiring Dobbins catheter placement. 2 metabolic encephalopathy secondary to sepsis. 3 left pelvic mass, incidental finding on CAT scan. Plan for CT-guided biopsy as an outpatient. 4 Parkinson disease 5 hypertension 6 hyperlipidemia 7 gout, stable 8 CAD 9 mild COPD 10 diabetes mellitus type II, uncontrolled secondary to hypoglycemia and hyperglycemia. 11 anemia of chronic disease. Discharge plan: [place] for therapies and IV antibiotics Impression and plan of care have been directed as dictated by the signing physician. Jesi Alanis nurse practitioner acting as scribe for signing physician. Patient Condition at Discharge: Good Plan - Discharge Summary Discharge Rx Participant: No New Discharge Prescriptions: New cefTRIAXone [Rocephin] 1,000 mg IVPB Q24HR #21 vial Insulin Aspart [NovoLOG (formulary)] 0 unit SQ ACHS vial Nystatin 100,000 Unit/ml Susp [Mycostatin Oral Susp] 5 ml PO QID #140 ml Magnesium Hydroxide [Milk of Magnesia Concentrate] 2,400 mg PO DAILY PRN ml PRN Reason: Constipation Continue Aspirin 81 mg PO DAILY Allopurinol [Zyloprim] 100 mg PO DAILY Simvastatin [Zocor] 10 mg PO HS Sennosides/Docusate Sodium [Senna-S Laxative Tablet] 1 tab PO BID Omeprazole 20 mg PO DAILY Nystatin 100,000 Unit/gm Powd [Mycostatin Powder] 1 applic TOPICAL DAILY Multivitamins, Thera [Multivitamin (formulary)] 1 tab PO DAILY Montelukast [Singulair] 10 mg PO DAILY Methenamine/Sodium Salicylate [Cystex Plus Tablet] 2 cap PO DAILY Losartan Potassium 100 mg PO DAILY Ipratropium-Albuterol Nebulize [Duoneb 0.5 mg-3 mg/3 ml Soln] 3 ml INHALATION RT-QID Hydrocortisone Cream [Hydrocortisone 1% Cream] 1 applic TOPICAL DAILY Glimepiride [Amaryl] 2 mg PO DAILY Epoetin Lev [Procrit] 20,000 unit SQ Q28D Cyanocobalamin [Vitamin B-12] 500 mcg PO DAILY Citalopram Hydrobromide [Citalopram HBr] 10 mg PO DAILY Cholecalciferol [Vitamin D3] 1,000 mg PO DAILY Carbidopa-Levodopa 25-100 mg [Sinemet 25-100 mg] 1 tab PO BID Atenolol [Tenormin] 50 mg PO DAILY Acetaminophen Tab [Tylenol] 1,000 mg PO TID Diclofenac Sodium Gel [Voltaren Gel] 2 gram TOPICAL BID ALPRAZolam [Xanax] 0.25 mg PO BID #6 tab traMADol HCL [Ultram] 50 mg PO TID PRN #9 tablet PRN Reason: Pain Changed Furosemide [Lasix] 40 mg PO DAILY #0 Discontinued Mupirocin Calcium [Bactroban 2% Nasal Oint] 1 applic TOPICAL DAILY Discharge Medication List Aspirin 81 mg PO DAILY 04/19/14 [History] Acetaminophen Tab [Tylenol] 1,000 mg PO TID 03/11/18 [History] Allopurinol [Zyloprim] 100 mg PO DAILY 03/11/18 [History] Atenolol [Tenormin] 50 mg PO DAILY 03/11/18 [History] Carbidopa-Levodopa 25-100 mg [Sinemet 25-100 mg] 1 tab PO BID 03/11/18 [History] Cholecalciferol [Vitamin D3] 1,000 mg PO DAILY 03/11/18 [History] Citalopram Hydrobromide [Citalopram HBr] 10 mg PO DAILY 03/11/18 [History] Cyanocobalamin [Vitamin B-12] 500 mcg PO DAILY 03/11/18 [History] Epoetin Lev [Procrit] 20,000 unit SQ Q28D 03/11/18 [History] Glimepiride [Amaryl] 2 mg PO DAILY 03/11/18 [History] Hydrocortisone Cream [Hydrocortisone 1% Cream] 1 applic TOPICAL DAILY 03/11/18 [ History] Ipratropium-Albuterol Nebulize [Duoneb 0.5 mg-3 mg/3 ml Soln] 3 ml INHALATION RT -QID 03/11/18 [History] Losartan Potassium 100 mg PO DAILY 03/11/18 [History] Methenamine/Sodium Salicylate [Cystex Plus Tablet] 2 cap PO DAILY 03/11/18 [ History] Montelukast [Singulair] 10 mg PO DAILY 03/11/18 [History] Multivitamins, Thera [Multivitamin (formulary)] 1 tab PO DAILY 03/11/18 [History ] Nystatin 100,000 Unit/gm Powd [Mycostatin Powder] 1 applic TOPICAL DAILY [History] Omeprazole 20 mg PO DAILY 03/11/18 [History] Sennosides/Docusate Sodium [Senna-S Laxative Tablet] 1 tab PO BID 03/11/18 [ History] Simvastatin [Zocor] 10 mg PO HS 03/11/18 [History] Diclofenac Sodium Gel [Voltaren Gel] 2 gram TOPICAL BID 06/06/18 [History] cefTRIAXone [Rocephin] 1,000 mg IVPB Q24HR #21 vial 06/09/18 [Rx] ALPRAZolam [Xanax] 0.25 mg PO BID #6 tab 06/10/18 [Rx] Furosemide [Lasix] 40 mg PO DAILY #0 06/10/18 [Rx] Insulin Aspart [NovoLOG (formulary)] 0 unit SQ ACHS vial 06/10/18 [Rx] Magnesium Hydroxide [Milk of Magnesia Concentrate] 2,400 mg PO DAILY PRN ml 05/28 [Rx] Nystatin 100,000 Unit/ml Susp [Mycostatin Oral Susp] 5 ml PO QID #140 ml [Rx] traMADol HCL [Ultram] 50 mg PO TID PRN #9 tablet 06/10/18 [Rx] Follow up Appointment(s)/Referral(s): Henri Bowman MD [Primary Care Provider] - 1 Week (at [facility]) Dione Mendiola [NON-STAFF] - 1 Week Activity/Diet/Wound Care/Special Instructions: Dione with IV ABX Discharge Disposition: TRANSFER TO SNF/ECF
[2018-06-10 12:54] VITALS: BP 139/60; TEMP 98.3
[2018-06-10 13:05] VITALS: PULSE 72
[2018-06-10] MEDS: MULTIVITAMINS, THERA 1 EACH TAB PO SCH (13:06)
[2018-06-10] MEDS ORDERED: CLOTRIMAZOLE TROCHE 10 MG TROCHE MUCOUS MEM SCH (16:00)
--- NOTE | 2018-06-13 10:02 | CDI ---
un Documentation Clarification Form Date: 06/13/18 From: Jossy Crane Phone: If you have a question regarding this query, please contact Staci Berrios at [phone] between 8am and 5pm. Admit Date: 06/06/2018 11:25:00 AM Patient Name: Day Soriano Visit Number: [id number] Discharge Date: 06/10/2018 5:30:00 PM ATTENTION: The Clinical Documentation Specialists (CDI) and [facility] Coding Staff appreciate your assistance in clarifying documentation. Please respond to the clarification below the line at the bottom and electronically sign. The CDI & [facility] Coding staff will review the response and follow-up if needed. Please note: Queries are made part of the Legal Health Record. If you have any questions, please contact the author of this message via ITS. Mina Alanis/Dr. Gama Arias Patient was admitted with sepsis and acute pyelonephritis. Chronic kidney disease is documented in Dr. Coreas and Dr. Delaney's consult notes and in Dr. Coreas 06/09 progress note. History/Risk Factors: The patient has hypertension, diabetes and iron deficiency anemia. Clinical Indicators: Decreased eGFR Current BUN/CR/GFR: 47/1.67/27 on admission Patients Discharge BUN/CR/GFR: 44/1.60/29 In order to capture the severity of condition, please clarify if the condition signifies: CKD Stage 1 (GFR > 90) CKD Stage 2 (GFR 60-89) CKD Stage 3 (GFR 30-59) CKD Stage 4 (GFR 15-29) CKD Stage 5 (GFR <15) ESRD Other, please specify Unable to determine unable to determine MTDD
[2018-06-27] MEDS ORDERED: DARBEPOETIN ALFA 60 MCG/0.3 ML SYRINGE SQ SCH (09:00)
== END 2018-06-10 17:30 | DRG 871 ==
LOC: EC 08:13 → 3SCARD 11:25
PROVIDERS: ADMIT Internal Medicine Geriatric Medicine; ATTEND Internal Medicine Geriatric Medicine
PROC: 05HD33Z Insertion of Infusion Device into Right Cephalic Vein, Percutaneous Approach (ICD-10-PCS; principal; 2018-06-10 12:00)
DX: A41.51 Sepsis due to Escherichia coli [E. coli] (principal); G93.41 Metabolic encephalopathy; N10 Acute pyelonephritis; R65.20 Severe sepsis without septic shock; E11.22 Type 2 diabetes mellitus with diabetic chronic kidney disease; E11.65 Type 2 diabetes mellitus with hyperglycemia; E11.42 Type 2 diabetes mellitus with diabetic polyneuropathy; E11.649 Type 2 diabetes mellitus with hypoglycemia without coma; G20 Parkinson's disease; J44.9 Chronic obstructive pulmonary disease, unspecified; M06.9 Rheumatoid arthritis, unspecified; B37.9 Candidiasis, unspecified; D50.9 Iron deficiency anemia, unspecified; E03.9 Hypothyroidism, unspecified; E78.5 Hyperlipidemia, unspecified; R33.9 Retention of urine, unspecified; I25.10 Atherosclerotic heart disease of native coronary artery without angina pectoris; K21.9 Gastro-esophageal reflux disease without esophagitis; K59.00 Constipation, unspecified; M10.9 Gout, unspecified; M19.90 Unspecified osteoarthritis, unspecified site; M47.9 Spondylosis, unspecified; F32.9 Major depressive disorder, single episode, unspecified; F41.9 Anxiety disorder, unspecified; R19.00 Intra-abdominal and pelvic swelling, mass and lump, unspecified site; G47.33 Obstructive sleep apnea (adult) (pediatric); M85.80 Other specified disorders of bone density and structure, unspecified site; Z79.82 Long term (current) use of aspirin; Z79.84 Long term (current) use of oral hypoglycemic drugs; Z79.899 Other long term (current) drug therapy; Z96.653 Presence of artificial knee joint, bilateral; Z90.710 Acquired absence of both cervix and uterus; Z87.891 Personal history of nicotine dependence; Z86.718 Personal history of other venous thrombosis and embolism; Z98.42 Cataract extraction status, left eye; Z98.41 Cataract extraction status, right eye; Z96.1 Presence of intraocular lens; Z88.6 Allergy status to analgesic agent; Z88.1 Allergy status to other antibiotic agents; Z88.5 Allergy status to narcotic agent; Z88.0 Allergy status to penicillin; Z88.8 Allergy status to other drugs, medicaments and biological substances; Z82.49 Family history of ischemic heart disease and other diseases of the circulatory system; Z82.3 Family history of stroke; Z80.0 Family history of malignant neoplasm of digestive organs
CPT/HCPCS: 36410; 36415; 71046; 73502; 74176; 76937; 80053; 81001; 82150; 82550; 82553; 83036; 83605; 83690; 84132; 84484; 85025; 85610; 85730; 87040; 87077; 87086; 87186; 93005; 94640; 94760; 96365; 99285